=== PATIENT | female | born 1935 | race Caucasian/White ===

== ENCOUNTER 2023-10-09 16:31 | Inpatient (IN) | payer MEDICARE, OTHER, SELFPAY ==
[2023-10-09 13:52] VITALS: BP 98/58
[2023-10-09 14:07] LABS: % Basophils 0.3 % (0-2); % Immature Granulocytes 0.2 % (0-0.5); % Lymphocytes 7.2 % (20.5-51.1); % Monocytes 10.2 % (1.7-9.3); % Neutrophils 82.1 % (42.2-75.2); Absolute Lymphocytes 0.8 10^3/uL (1.2-3.4); Absolute Monocytes 1.1 10^3/uL (0.1-0.6); Absolute Neutrophils 8.5 10^3/uL (1.4-6.5); Hematocrit 36.5 % (37.0-47.0); Hemoglobin 12.2 g/dL (12.0-16.0); Mean Corp Hgb Conc. 33.4 g/dL (33.0-37.0); Mean Corpuscular Hgb 29.8 pg (27.0-31.0); Mean Corpuscular Volume 89.2 fL (81.0-99.0); Mean Platelet Volume 9.8 fL (7.4-10.4); Nucleated Red Blood Cells % 0 %; Platelet Count 291 10^3/uL (130-400); Red Blood Cell Count 4.09 10^6/uL (4.20-5.40); Red Cell Dist. Width 13.3 % (11.5-14.5); White Blood Cell Count 10.4 10^3/uL (4.8-10.8)
[2023-10-09 14:21] LABS: ALT (SGPT) 23 U/L (0-35); AST (SGOT) 44 U/L (14-36); Albumin 3.9 g/dl (3.5-5.0); Alkaline Phosphatase 115 U/L (38-126); Blood Urea Nitrogen 22 mg/dl (7-17); Carbon Dioxide 27 mmol/L (22-30); Chloride 99 mmol/L (98-107); Glucose 110 mg/dl (70-99); Potassium 4.4 mmol/L (3.5-5.1); Sodium 132 mmol/L (135-145); Total Protein 6.9 g/dl (6.3-8.2); eGFR > 60.00
[2023-10-09 15:12] LABS: COVID-19 Antigen Negative (Negative)
[2023-10-09 15:30] LABS: Lactic Acid 1.2 mmol/L (0.7-2.0)
[2023-10-09] MEDS: TYLENOL 650 MG PO ×2 (15:39→22:49)
--- NOTE | 2023-10-09 15:51 | ED.SKININJ ---
HPI-Injury
General
Chief Complaint: Skin Problem
Source: patient
Exam Limitations: none
Time Seen by Provider: 10/09/23 13:48
Travel History
Have you had any contact with someone who has COVID-19?: No
Do you have any symptoms of coronavirus? Fever > 100 degrees, chills, cough, shortness of breath, sore throat, loss of taste or smell, muscle aches, or headache?: No
History of Present Illness-Injury
Initial Injury comments:
88-year-old female presents from [facility] with generalized weakness fever and persistent redness and swelling to the right knee. Temperature at facility was 101. She was thought to have cellulitis versus abscess in the right knee was
started on doxycycline 2 days ago. She has become more weak. She is unable to support her own weight. Her daughter notes she has been confused as well. She has a pacemaker and is on Plavix. She has a history of right total knee arthroplasty
several years ago. She also notes intermittent sharp stabbing headaches. No other complaints at this time
Phy Exam
Physical Exam
Physical Exam:
General: Well-appearing female no acute respiratory distress
HEENT: Normocephalic atraumatic no obvious facial asymmetry
Heart: Regular rate and rhythm
Lungs: Clear no wheezing or rales
Abdomen is soft nontender nondistended
Skin erythema and swelling noted over the prepatellar area of the right knee. No intra-articular effusion of the right knee there is a sinus tract in the center of the swelling draining a serous fluid
Extremities: No cyanosis
Neurologic: No obvious focal unilateral deficit alert and oriented x 3
Course
Orders/Labs/Results
Orders:
Orders
10/09/23 14:00
CBC/With Diff [Complete Blood Count/With Diff] Urgent
CMP [Comprehensive Metabolic Panel] Urgent
10/09/23 14:12
CT Head W/o Iv Contrast Urgent
Comment:
Reason For Exam: headache, confusion
CR Chest - 2 Views Urgent
Comment:
Reason For Exam: weakness
10/09/23 14:13
Urinalysis Reflex To Culture Urgent
Date Specimen was Collected: 10/09/23
Time Specimen was Collected: 14:39
10/09/23 14:45
COVID-19 Antigen Urgent
Source: Nasal Swab
Lactic Acid Q4H
Comment: CANCEL 2nd LACTIC ACID IF 1st LACTIC ACID IS LESS THAN 2
Blood Culture Q30M
BAYLEE Source: Blood/Venous
Specimen Description:
Influenza A+B Rapid Molecular Urgent
BAYLEE Source: Nasal Swab
Specimen Description:
10/09/23 15:13
Blood Culture Q30M
BAYLEE Source: Blood/Venous
Specimen Description:
10/09/23 15:20
Acetaminophen [Tylenol] 650 mg PO NOW STA
10/09/23 15:46
Vancomycin 1 Gram/200 ml [Vancocin] 1 gram in 200 ml IV NOW
10/09/23 18:15
Lactic Acid Q4H
Comment: CANCEL 2nd LACTIC ACID IF 1st LACTIC ACID IS LESS THAN 2
Abnormal Lab Results
10/09/23
14:00
RBC 4.09 L 10^6/uL
(4.20-5.40)
Hct 36.5 L %
(37.0-47.0)
Absolute Neuts (auto) 8.5 H 10^3/uL
(1.4-6.5)
Absolute Lymphs (auto) 0.8 L 10^3/uL
(1.2-3.4)
Absolute Monos (auto) 1.1 H 10^3/uL
(0.1-0.6)
Neutrophils % 82.1 H %
(42.2-75.2)
Lymphocytes % 7.2 L %
(20.5-51.1)
Monocytes % 10.2 H %
(1.7-9.3)
Sodium 132 L mmol/L
(135-145)
BUN 22 H mg/dl
(7-17)
Glucose 110 H mg/dl
(70-99)
AST 44 H U/L
(14-36)
10/09/23 14:00
10/09/23 14:00
Vital Signs
Initial and Last Documented VS:
Initial Vital Signs
Temp Pulse Resp Pulse Ox
98.5 F 72 16 96
10/09/23 12:06 10/09/23 12:06 10/09/23 12:06 10/09/23 12:06
Last Documented Vital Signs
Temp Pulse Resp BP Pulse Ox
98.5 F 76 23 98/58 97
10/09/23 12:06 10/09/23 14:30 10/09/23 14:30 10/09/23 13:52 10/09/23 14:30
MDM/Problems Addressed
Differential Diagnosis Includes:
Fever, weakness and skin changes to the skin of the right knee. No exam evidence of septic arthritis. Suspect cellulitis versus draining abscess. Check COVID and flu as well as CT of the head and x-ray of the chest.
*Critical Care Note
Total Time (30-74mins, 75-104mins- exclusive of procedures): Not Applicable
Update Note
Update Note:
CT of the head negative. Chest x-ray clear COVID and flu negative. Possible generalized weakness from cellulitis to right knee on antibiotics currently. Will keep in half for vancomycin and further evaluate
ED Attending Note
-
Portions of this chart may have been created with voice recognition software.� Occasional wrong word or��sound alike� substitutions may have occurred due to the inherent limitations of voice recognition software.
Discharge Plan
Departure
Patient Disposition: Admit
Date of Disposition: 10/09/23
Time of Disposition: 15:55
Admit to: Telemetry
Presentation/result/management discussed w/ accepting MD/DO: Hospitalist
Discharge Problem:
Cellulitis
Referrals:
Rios Augustin DO [Family Provider] -
Interventions
Interventions:
*Risk Screen - Suicide Last Done: 10/09/23 12:06
*General Assessment Last Done: 10/09/23 12:06
*Neglect/Abuse Screening Last Done: 10/09/23 12:06
ED- Fall Risk Assessment Last Done: 10/09/23 14:40
*ED COVID-19 Vaccine History Last Done: 10/09/23 12:06
--- NOTE | 2023-10-09 16:17 | HPS.HSE ---
Family Physician
-
Family Physician: Rios Augustin DO
Chief Complaint
-
Right knee pain and swelling
History of Present Illness
88-year-old female transferred from [facility] for complaints of fever, weakness, redness and swelling of the right knee. Denies any falls or trauma.
Very poor historian. Apparently the right knee started swelling a few days ago and started on doxycycline 2 days ago. Daughter notes she has also been confused.
Medical History
Past Medical History
Past Medical History: Reports Other
Additional Past Medical History:
Atrial fibrillation NOS
Primary thrombophilia
Congenital absence of left hand
hyperlipidemia
Protein calorie malnutrition
Peripheral vascular disease
Vitamin D deficiency
Dementia
Major depression
Osteoporosis
Bilateral sensorineural hearing loss
Past Surgical History: Reports Other
Additional Past Surgical History:
Permanent pacemaker
AVR
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
Social History
Unable to obtain full social history at this time due to: Dementia
Tobacco: Non-smoker
Alcohol: None
Drug: None
Family History
Family History: Not pertinent
Allergies / Home Medications
Allergies reflects when Allergies were last updated in [facility].
Home Medications with original date entered in [facility]
Allergy/Medication List:
Allergies
Allergy/AdvReac Type Severity Reaction Status Date / Time
Penicillins Allergy Unknown Verified 10/09/23 12:06
Sulfa (Sulfonamide Allergy Unknown Verified 10/09/23 12:06
Antibiotics)
Review of Systems
-
History Source: Patient and Family
A 12 point ROS was completed and negative except as noted: Yes
Physical Exam
Vital Signs
Vital Signs
Temp Pulse Resp BP Pulse Ox
98.5 F 76 23 98/58 97
10/09/23 12:06 10/09/23 14:30 10/09/23 14:30 10/09/23 13:52 10/09/23 14:30
Physical Exam
General: Well Developed, Well Nourished, No Apparent Distress and Comfortable
HEENT: NormoCephalic, Anicteric and Moist mucous membranes
Respiratory: Clear
Cardiac: S1/S2 and Regular Rhythm
GI: Soft, Non Tender and Non Distended
Genito-urinary: Deferred by me
Musculoskeletal: No Clubbing, No Cyanosis and No Edema
Skin: Warm, Dry and Other (Right suprapatellar erythema and edema minimal drainage)
Neuro: Awake and Alert; No Oriented
Hematologic/Lymphatic: No Lymphadenopathy
Psych: Calm
Laboratory Results
-
10/09/23 14:00
10/09/23 14:00
Laboratory Results
Lactic Acid 1.2 mmol/L (0.7-2.0) 10/09/23 14:45
Total Bilirubin 1.0 mg/dl (0.2-1.3) 10/09/23 14:00
AST 44 U/L (14-36) H 10/09/23 14:00
ALT 23 U/L (0-35) 10/09/23 14:00
Alkaline Phosphatase 115 U/L (38-126) 10/09/23 14:00
Impression/Plan
-
Right suprapatellar site skin and soft tissue abscess -doubt septic arthritis. Normal range of motion of the knee Without significant pain.
Admit to MedSurg. Continue IV antibiotics. Consult orthopedics for abscess drainage. Check cultures. No signs or symptoms of sepsis.
Hyponatremia -check urine studies.
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
Please update home medication list.
DNR -confirmed with daughter.
[2023-10-09] MEDS: VANCOCIN 200 IV (16:31)
--- NOTE | 2023-10-09 19:26 | CON.ORTHO ---
Consultation - Orthopedics
History
Patient is an 88-year-old female who presents to the [facility] with a chief complaint of right anterior knee pain. Patient does have dementia, although is AOx3 today. Granddaughter is present at bedside who is a nurse. They
state that the right anterior knee pain has been present for the past several months with occasional drainage. She recently had a fever of 101 at her facility. She has been on doxycycline for the past 2 days. Past surgical history is significant
for a right total knee replacement in 2017. Patient reports pain at the anterior knee but denies any pain at the knee joint itself. She denies any pain within the knee upon range of motion of the knee. Denies any numbness or tingling of the right
lower extremity. She does have a pacemaker and is on plavix.
Allergies / Home Medications
Allergy/AdvReac Type Severity Reaction Status Date / Time
Penicillins Allergy Unknown Verified 10/09/23 12:06
Sulfa (Sulfonamide Allergy Unknown Verified 10/09/23 12:06
Antibiotics)
Medication Instructions Recorded
Saccharomyces boulardii 250 mg 250 mg PO QPM 10/09/23
capsule (Florastor)
acetaminophen 325 mg tablet 650 mg PO Q4HPRN PRN mild pain 10/09/23
(Tylenol)
acetaminophen 500 mg tablet 1,000 mg PO BID 10/09/23
(Tylenol Extra Strength)
alendronate 70 mg tablet (Fosamax) 70 mg PO HANLEY 10/09/23
alprazolam 0.25 mg tablet (Xanax) 0.25 mg PO BIDPRN PRN if cant 10/09/23
sleep after 0200am
azelastine 137 mcg (0.1 %) nasal 1 spray intranasal DAILYPRN PRN 10/09/23
spray aerosol allergies
bisacodyl 10 mg rectal suppository 10 mg MA [id number] PRN if no bm aftr 10/09/23
(Dulcolax (bisacodyl)) mom
carbamide peroxide 6.5 % ear drops 4 drp otic (ear) BIDPRN PRN cerumen 10/09/23
(Debrox)
cetirizine 10 mg tablet (Zyrtec) 10 mg PO DAILY PRN allergies 10/09/23
chlorpheniramine-dextromethorphan 1 tab PO Q6HPRN PRN cough 10/09/23
4 mg-30 mg tablet (Coricidin HBP
Cough and Cold)
chlorthalidone 25 mg tablet 25 mg PO DAILY 10/09/23
cholecalciferol (vitamin D3) 1,250 1,250 mcg PO QMONTH 10/09/23
mcg (50,000 unit) tablet
clopidogrel 75 mg tablet (Plavix) 75 mg PO DAILY 10/09/23
doxycycline hyclate 100 mg tablet 100 mg PO BID 10/09/23
eucalyptus-menthol oral mucosal 3.1 mg mucous membrane Q6HPRN PRN 10/09/23
lozenge cough
ezetimibe 10 mg tablet (Zetia) 10 mg PO DAILY 10/09/23
lidocaine 4 % topical patch 1 patch topical DAILYPRN PRN b/l 10/09/23
knee
magnesium hydroxide 400 mg/5 mL 2,400 mg PO HSPRN PRN constipation 10/09/23
oral suspension (Milk of Magnesia)
methimazole 5 mg tablet 5 mg PO MOWEFR@0800 10/09/23
pantoprazole 20 mg tablet,delayed 20 mg PO DAILY 10/09/23
release (Protonix)
potassium chloride 20 mEq 20 meq PO BID 10/09/23
tablet,extended release
rosuvastatin 40 mg tablet (Crestor) 40 mg PO QPM 10/09/23
sertraline 25 mg tablet 12.5 mg PO MOWEFR@0830 10/09/23
sotalol 80 mg tablet 40 mg PO BID 10/09/23
trazodone 50 mg tablet 50 mg PO HS 10/09/23
Vital Signs / Lab Results
Temp Pulse Resp BP Pulse Ox
98.5 F 76 23 98/58 97
10/09/23 12:06 10/09/23 14:30 10/09/23 14:30 10/09/23 13:52 10/09/23 14:30
10/09/23 14:00
10/09/23 14:00
Review of systems negative otherwise as noted in HPI
General Examination
GENERAL APPEARANCE: Alert, well hydrated, in no distress.
HEAD: Normocephalic, atraumatic.
EYES: Extraocular movement full and smooth.
GI: Soft, nontender, nondistended
MSK: Right knee prepatellar effusion present with surrounding erythema anteriorly. Small region of skin opening present with clear fluid drainage. No effusion present at the knee. No tenderness present upon palpation of medial or lateral joint
line. Prior surgical incision is well-healed. No pain elicited within the knee joint upon range of motion-patient only feels tightness at the anterior knee with discomfort upon flexion to 90 degrees. TA/EHL/GSC intact motor. Sensation intact of
the right lower extremity grossly. DP 2+.
Imaging:
Right knee x-rays pending
Assessment / Plan
Assessment:
Right knee prepatellar bursitis. Based on examination, there is low suspicion for infection in the knee joint
Plan:
Patient has had chronic right knee prepatellar bursitis over the past several months. She has also had drainage on and off per family. She is currently afebrile and vitals are stable. WBC wnl.
-Recommend compressive dressing at the right knee. Warm compresses to R knee
-Recommend antibiotics per IM.
-RLE WBAT.
-No surgical intervention indicated at this time. Will continue to follow.
[2023-10-09 19:57] VITALS: BP 153/70; BMI 23.2
--- NOTE | 2023-10-09 20:00 | PTCARENOTE ---
Received patient from ED via stretcher. Patient pulled over from stretcher to bed. No current complaints of pain. Right knee abscess draining serous fluid. Oriented patient to room and placed call vaughan within reach.
[2023-10-09] MEDS: LOVENOX 40 MG SC (22:23)
[2023-10-09 23:00] VITALS: BP 144/88
[2023-10-10 03:51] VITALS: BP 139/61
[2023-10-10 07:35] VITALS: BP 155/59
--- NOTE | 2023-10-10 07:43 | PHA.VAN.IN ---
Assessment
- Assessment
Renal Function: Appears similar to baseline
Maximum Temperature: 102.5 on 10/08 23:00
AUC Dosing Plan
- Dosing Variables
Dosing Weight (kg): 53.7
Dosing CrCl (ml/min): 36
Vd coefficient (L/kg): 0.7
- Empiric Dosing
Initial / Loading Dose: 1000 mg - 10/09/23 ~1630
Maintenance Regimen: begin 750 mg q24h today
Estimated AUC (mcg*h/mL): 592
Estimated Peak (mcg*h/mL): 35.6
Estimated Trough (mcg/ml): 16.2
Estimated Half Life (H): 20.2
- Monitoring
No levels ordered at this time: may consider trough only Thursday AM; or P/T after 4th dose
Pharmacokinetics Vancomycin I
- -
Patient Age: 88
Patient Sex: Female
Vancomycin Day #: 1
Indication: Skin And Soft Tissue
Requesting Provider: NAVDEEP
Pertinent Antimicrobial Allergies:
Allergies
Penicillins Allergy (Verified 10/09/23 12:06)
Unknown
Sulfa (Sulfonamide Antibiotics) Allergy (Verified 10/09/23 12:06)
Unknown
Height / Weight:
Height 5 ft
Actual Weight 53.779 kg
Pertinent Past Medical History: failed outpt doxy
- Vital Signs / Lab Results
Temp Pulse Resp BP Pulse Ox
98.8 F 74 16 139/61 94
10/10/23 03:51 10/10/23 03:51 10/10/23 03:51 10/10/23 03:51 10/10/23 03:51
Lab Results - Hematology
10/09/23
14:00
WBC 10.4
Lab Results - Chemistry
10/09/23
14:00
BUN 22 H
Creatinine 0.8
Albumin 3.9
03/08/24 03/08/24
14:45 18:15
Lactic Acid 1.2 Cancelled
Microbiology Results
10/09/23 14:45 Influenza Types A & B (DELORIS) - Final
Nasal Swab Negative for Influenza A & B, NAAT
Negative results must be combined with clinical observations
and patient history.
Nucleic Acid Amplification test (NAAT)performed on the
[employer] platform.
[2023-10-10 08:38] LABS: Urine Albumin 1+ (Neg - Trace); Urine Bilirubin Negative (Negative); Urine Character Clear (Clear); Urine Color Yellow; Urine Glucose Negative (Negative); Urine Ketone Trace (Negative); Urine Leukocyte Negative (Negative); Urine Nitrite Negative (Negative); Urine Occult Blood 2+ (Negative); Urine Urobilinogen Negative (Neg - 1+); Urine pH 6.5 (5.0-9.0)
[2023-10-10 09:09] LABS: Urine Bacteria Few (Negative); Urine Red Blood Cell 0-2 /HPF (0-2)
[2023-10-10 09:15] VITALS: BP 135/62; PULSE 80; O2SAT 96
[2023-10-10] MEDS: TYLENOL 650 MG PO ×2 (09:21→20:59)
--- NOTE | 2023-10-10 09:47 | W.PN.HOSP.TC ---
Today's Communication/Plan
-
PT/OT
Continue IV vancomycin
Compression dressings
Assessment / Plan
Assessment / Plan
Gen-AAOx3, NAD
HEENT-NC, AT, anicteric, clear oral mm
Neck-supple
CV-reg, no M, +S1/S2
Lungs-clear B/L
Abd-soft, NT, ND
Ext-no edema
Musculoskeletal-no cyanosis, clubbing, right knee erythema and edema much improved compared to yesterday
Skin-warm and dry
Neuro-grossly non-focal
Psych-calm, cooperative
Right knee prepatellar bursitis/abscess -improving on IV vancomycin. Unfortunately no fluid culture was sent. Blood cultures pending. Fever noted last night. White blood cell count normal. No drainage indicated as per orthopedics. Continue
compression dressings. Warm compresses. Weightbearing as tolerated.
Hyponatremia -check urine studies. Will discontinue chlorthalidone.
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
Hyperlipidemia -on Crestor.
essential hypertension -stable.
Osteoporosis -on weekly Fosamax
DNR
Anticipated Discharge: 24 - 48 hours
Subjective/Interval History
-
Date of Service: October 10, 2023
Patient seen and examined. Complaining of headache. Denies knee pain.
Objective Data
-
Vital Signs:
Vital Signs
Temp Pulse Resp BP Pulse Ox
98.9 F 71 20 155/59 94
10/10/23 07:35 10/10/23 07:35 10/10/23 07:35 10/10/23 07:35 10/10/23 07:35
I&O
10/09/23 10/10/23 10/11/23
06:59 06:59 07:59
Intake Total 0 / 0
Balance 0 / 0
Review of Systems
-
History Source: Patient
All other systems: Reviewed and negative
--- NOTE | 2023-10-10 11:05 | W.PN.ORTHO ---
Today's Communication / Plan
-
Plan:
-Recommend compressive dressing at the right knee. Warm compresses to R knee
-Recommend antibiotics per IM.
-RLE WBAT
-Will continue to follow
Assessment
.
Dressing:
Clean, dry and intact.
Assessment:
Right knee prepatellar bursitis. Currently low concern for knee joint infection given she has near painless ROM
Plan
.
Activity:
Out of bed.
PT/OT
Subjective
.
.:
Patient seen and examined. Resting comfortably in bed. Still reports pain at the right anterior knee. Denies any numbness or tingling of the right lower extremity.
Vital Signs and Labs
.
Vital Signs and Labs:
Lab Results
10/09/23 14:00
10/09/23 14:00
Temp Pulse Resp BP Pulse Ox
98.9 F 71 20 155/59 94
10/10/23 07:35 10/10/23 07:35 10/10/23 07:35 10/10/23 07:35 10/10/23 07:35
Physical Exam
-
MSK: Right knee prepatellar effusion present with surrounding erythema anteriorly- improved from yesterday. Small region of skin opening present with clear fluid drainage. No effusion present at the knee. No tenderness present upon palpation of
medial or lateral joint line. No pain elicited within the knee joint upon range of motion-patient only feels tightness at the anterior knee with discomfort upon flexion to 90 degrees. TA/EHL/GSC intact motor. Sensation intact of the right lower
extremity grossly. DP 2+
[2023-10-10] MEDS: BETAPACE 40 MG PO ×2 (11:13→20:52)
[2023-10-10] MEDS: PLAVIX 75 MG PO (11:13)
[2023-10-10] MEDS: VANCOCIN 150 IV (11:14)
[2023-10-10] MEDS: ZETIA 10 MG PO (11:14)
[2023-10-10 11:23] LABS: Osmolality Urine 544 mOsm/kg (300-900)
[2023-10-10] MEDS: DEBROX EAR DROPS 4 DROP OTIC (11:27)
[2023-10-10 11:39] LABS: Urine Sodium 109 mmol/L (30-90)
[2023-10-10 15:28] VITALS: BP 154/66
[2023-10-10] MEDS: LOVENOX 40 MG SC (17:15)
[2023-10-10] MEDS: CRESTOR 40 MG PO (17:15)
[2023-10-10] MEDS: FLORASTOR 250 MG PO (17:15)
[2023-10-10 19:45] VITALS: BP 166/90
[2023-10-10] MEDS: KCL 20 MEQ PO (20:53)
[2023-10-10] MEDS: DESYREL 50 MG PO (22:26)
[2023-10-10 23:27] VITALS: BP 122/52
[2023-10-11 03:41] VITALS: BP 150/69
[2023-10-11] MEDS: VANCOCIN 150 IV (05:32)
[2023-10-11 07:25] VITALS: BP 157/63
[2023-10-11] MEDS: BETAPACE 40 MG PO ×2 (08:39→20:52)
[2023-10-11] MEDS: KCL 20 MEQ PO ×2 (08:39→20:52)
[2023-10-11] MEDS: PLAVIX 75 MG PO (08:39)
[2023-10-11] MEDS: PROTONIX 20 MG PO (08:39)
[2023-10-11] MEDS: ZETIA 10 MG PO (08:39)
--- NOTE | 2023-10-11 09:11 | W.PN.HOSP.TC ---
Today's Communication/Plan
-
Await labs
Continue antibiotics
Continue PT/OT
Assessment / Plan
Assessment / Plan
Gen-AAOx3, NAD
HEENT-NC, AT, anicteric, clear oral mm
Neck-supple
CV-reg, no M, +S1/S2
Lungs-clear B/L
Abd-soft, NT, ND
Ext-no edema
Musculoskeletal-no cyanosis, clubbing, right knee erythema and edema much improved compared to yesterday
Skin-warm and dry
Neuro-grossly non-focal
Psych-calm, cooperative
Right knee prepatellar bursitis/abscess -improving on IV vancomycin. Unfortunately no fluid culture was sent. Blood cultures negative. Fever noted last night. White blood cell count normal. No drainage indicated as per orthopedics. Continue
compression dressings. Warm compresses. Weightbearing as tolerated.
Hyponatremia -urine studies consistent with excess ADH. Will discontinue chlorthalidone. Check repeat labs today.
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
Hyperlipidemia -on Crestor.
essential hypertension -stable.
Osteoporosis -on weekly Fosamax
DNR
Dispo -PT recommending possible SNF.
Anticipated Discharge: Within 24 hours
Subjective/Interval History
-
Date of Service: October 11, 2023
Patient seen and examined. No new complaints.
Objective Data
-
Vital Signs:
Vital Signs
Temp Pulse Resp BP Pulse Ox
98.7 F 74 18 157/63 92
10/11/23 07:25 10/11/23 07:25 10/11/23 07:25 10/11/23 07:25 10/11/23 07:25
I&O
10/10/23 10/11/23 10/12/23
05:59 06:59 06:59
Intake Total
Output Total
Balance
Review of Systems
-
History Source: Patient
All other systems: Reviewed and negative
[2023-10-11 09:52] LABS: % Basophils 0.9 % (0-2); % Eosinophils 0.1 % (0-6); % Immature Granulocytes 0.3 % (0-0.5); % Lymphocytes 14.5 % (20.5-51.1); % Neutrophils 72.2 % (42.2-75.2); Absolute Basophils 0.1 10^3/uL (0-0.2); Absolute Monocytes 0.8 10^3/uL (0.1-0.6); Absolute Neutrophils 4.9 10^3/uL (1.4-6.5); Hematocrit 36.6 % (37.0-47.0); Hemoglobin 12.3 g/dL (12.0-16.0); Mean Corp Hgb Conc. 33.6 g/dL (33.0-37.0); Mean Corpuscular Hgb 29.1 pg (27.0-31.0); Mean Corpuscular Volume 86.5 fL (81.0-99.0); Mean Platelet Volume 9.6 fL (7.4-10.4); Nucleated Red Blood Cells % 0 %; Platelet Count 320 10^3/uL (130-400); Red Blood Cell Count 4.23 10^6/uL (4.20-5.40); Red Cell Dist. Width 13.4 % (11.5-14.5); White Blood Cell Count 6.8 10^3/uL (4.8-10.8)
[2023-10-11 10:08] LABS: ALT (SGPT) 32 U/L (0-35); AST (SGOT) 60 U/L (14-36); Albumin 3.4 g/dl (3.5-5.0); Alkaline Phosphatase 114 U/L (38-126); Blood Urea Nitrogen 22 mg/dl (7-17); Calcium 8.9 mg/dl (8.4-10.2); Carbon Dioxide 28 mmol/L (22-30); Chloride 95 mmol/L (98-107); Estimated Creatinine Clearance 32 ml/min; Glucose 195 mg/dl (70-99); Potassium 3.2 mmol/L (3.5-5.1); Sodium 129 mmol/L (135-145); Total Bilirubin 0.8 mg/dl (0.2-1.3); Total Protein 6.3 g/dl (6.3-8.2); eGFR > 60.00
--- NOTE | 2023-10-11 10:20 | PHA.VAN.FU ---
Vancomycin Assessment / Plan
- Assessment
Renal Function: Stable
WBC's are: WNL
In the past 24 hrs, patient has been: Febrile (102.3 - 10/10/23 19:45)
Concomitant Antimicrobials: none
- Dosing Plan
Continue: vancomycin 750 mg q24h - first dose 10/10/23
- Monitoring Plan
Peak Level: 10/12/23 0830 - after 4th dose
Trough Level: 10/13/23 0530
- Follow Up
Pharmacy will continue to follow.
Vancomycin Follow UP
- -
Patient Age: 88
Patient Sex: Female
Vancomycin Day #: 2
Indication: Skin And Soft Tissue
Requesting Provider: NAVDEEP
Pertinent Antimicrobial Allergies:
Allergies
Penicillins Allergy (Verified 10/09/23 12:06)
Unknown
Sulfa (Sulfonamide Antibiotics) Allergy (Verified 10/09/23 12:06)
Unknown
Height / Weight:
Height 5 ft
Actual Weight 53.779 kg
Pertinent Past Medical History: failed outpt doxy
- Vital Signs / Lab Results
Temp Pulse Resp BP Pulse Ox
98.7 F 74 18 157/63 92
10/11/23 07:25 10/11/23 07:25 10/11/23 07:25 10/11/23 07:25 10/11/23 07:25
Lab Results - Hematology
10/09/23 10/11/23
14:00 09:32
WBC 10.4 6.8
Lab Results - Chemistry
10/09/23 10/11/23
14:00 09:32
BUN 22 H 22 H
Creatinine 0.8 0.9
Estimated Creat Clear 32
Albumin 3.9 3.4 L
10/09/23 10/09/23
14:45 18:15
Lactic Acid 1.2 Cancelled
Microbiology Results
10/09/23 23:10 MRSA Screen - Final
Nose No Methicillin Resistant Staphylococcus aureus isolated.
10/09/23 15:13 Blood Culture - Preliminary
Blood/Venous No Growth in 24 hours- Final report to follow
10/09/23 14:45 Blood Culture - Preliminary
Blood/Venous No Growth in 24 hours- Final report to follow
10/09/23 14:45 Influenza Types A & B (DELORIS) - Final
Nasal Swab Negative for Influenza A & B, NAAT
Negative results must be combined with clinical observations
and patient history.
Nucleic Acid Amplification test (NAAT)performed on the
[employer] platform.
[2023-10-11 11:20] VITALS: BP 137/60
[2023-10-11 11:56] LABS: Magnesium 1.9 mg/dl (1.6-2.3)
[2023-10-11] MEDS: DEBROX EAR DROPS 4 DROP OTIC (12:51)
[2023-10-11] MEDS: KCL 40 MEQ PO (12:52)
[2023-10-11] MEDS: TYLENOL 650 MG PO ×2 (15:17→21:04)
[2023-10-11 15:45] VITALS: BP 155/73
--- NOTE | 2023-10-11 15:49 | W.PN.ORTHO ---
Today's Communication / Plan
-
Plan:
-Recommend compressive dressing at the right knee. Warm compresses to R knee
-Recommend antibiotics per IM.
-She reports improvement in her pain. If there is worsening of her pain or concern develops for a knee joint infection, she may require a joint aspiration
-RLE WBAT
-Will continue to follow
Assessment
.
Dressing:
Clean, dry and intact.
Assessment:
Assessment:
Right knee prepatellar bursitis
Plan
.
Activity:
Out of bed.
PT/OT
Subjective
.
.:
Patient seen and examined. Resting comfortably in bed. Still reports pain at the right anterior knee. Denies any numbness or tingling of the right lower extremity.
Vital Signs and Labs
.
Vital Signs and Labs:
Lab Results
10/11/23 09:32
10/11/23 09:32
Temp Pulse Resp BP Pulse Ox
100 F 73 18 137/60 93
10/11/23 11:20 10/11/23 11:20 10/11/23 11:20 10/11/23 11:20 10/11/23 11:20
Physical Exam
-
MSK: Right knee prepatellar effusion present with surrounding erythema anteriorly- improved from yesterday. Small region of skin opening present with clear fluid drainage-diminished compared to yesterday. No effusion present at the knee. No
tenderness present upon palpation of medial or lateral joint line. No pain elicited within the knee joint upon range of motion-patient only feels tightness at the anterior knee with discomfort upon flexion to 90 degrees. TA/EHL/GSC intact motor.
Sensation intact of the right lower extremity grossly. DP 2+
Imaging:
X-rays from 10/09/2023 demonstrate the presence of a right total knee arthroplasty as well as a screw at the proximal tibia. Rotated and deformed patella present which is likely status post removal of patellar component at some point in the past.
Suprapatellar effusion present.
[2023-10-11] MEDS: LOVENOX 40 MG SC (17:50)
[2023-10-11] MEDS: FLORASTOR 250 MG PO (17:50)
[2023-10-11] MEDS: CRESTOR 40 MG PO (17:50)
[2023-10-11 19:56] VITALS: BP 132/58
[2023-10-11] MEDS: DESYREL 50 MG PO (20:53)
[2023-10-11 23:26] VITALS: BP 118/54
[2023-10-12 03:38] VITALS: BP 154/74
[2023-10-12] MEDS: VANCOCIN 150 IV (06:01)
[2023-10-12 07:45] VITALS: BP 170/76
[2023-10-12 09:01] LABS: Vancomycin Peak 22.1 ug/ml (18-26)
[2023-10-12] MEDS: BETAPACE 40 MG PO ×2 (09:04→22:01)
[2023-10-12] MEDS: ZETIA 10 MG PO (09:07)
[2023-10-12] MEDS: TAPAZOLE 5 MG PO (09:07)
[2023-10-12] MEDS: PROTONIX 20 MG PO (09:07)
[2023-10-12] MEDS: PLAVIX 75 MG PO (09:07)
[2023-10-12] MEDS: KCL 20 MEQ PO ×2 (09:08→22:02)
[2023-10-12] MEDS: ZOLOFT 12.5 MG PO (09:18)
--- NOTE | 2023-10-12 10:00 | WOUNDNOTE ---
STEVIE RN note: Patient admitted with cellulitis of R knee.
See H&P for complete history.
PMH: R knee surgery, PM, TAVR, A Fib, anxiety, depression,dementia and congenital absence of L hand.
Wound Location and type/assessment: Patient admitted with: R knee drainage, reviewed Ortho note; prepatellar bursitis, compressive dressing and warm compresses recommended. Patient able to turn self in bed, buttocks and heels are intact. Pillow in
use under calves.
Appetite: Good.
Pressure redistribution devices in place: On Accumax, turns self.
Plan: Dressing changed using gauze, abd pad and yasmine, small amt of serous drainage on old dressing.
Will confirm orders with hospitalist and update nurse.
Updated care plan and will follow as needed.
Note to case management of equipment requested for discharge:
Recommend follow up with orthopedic MD.
--- NOTE | 2023-10-12 10:07 | PHA.VAN.FU ---
Vancomycin Assessment / Plan
- Assessment
Renal Function: Stable
WBC's are: WNL
In the past 24 hrs, patient has been: Afebrile
- Dosing Plan
Continue: vanc 750 mg q24h
- Monitoring Plan
Peak Level: 22.1 drawn 08:18, between 1-3 hours post completion of infusion
Trough Level: 10/12 0530
- Follow Up
Pharmacy will continue to follow.
Vancomycin Follow UP
- -
Patient Age: 88
Patient Sex: Female
Vancomycin Day #: 3
Indication: Skin And Soft Tissue
Requesting Provider: Dr Theodore
Pertinent Antimicrobial Allergies:
Allergies
Penicillins Allergy (Verified 10/09/23 12:06)
Unknown
Sulfa (Sulfonamide Antibiotics) Allergy (Verified 10/09/23 12:06)
Unknown
Height / Weight:
Height 5 ft
Actual Weight 53.779 kg
Pertinent Past Medical History: failed outpt doxy; knee abcess
- Vital Signs / Lab Results
Temp Pulse Resp BP Pulse Ox
99.5 F 74 18 170/74 93
10/12/23 07:45 10/12/23 09:04 10/12/23 07:45 10/12/23 09:04 10/12/23 09:20
Lab Results - Hematology
10/09/23 10/11/23
14:00 09:32
WBC 10.4 6.8
Lab Results - Chemistry
10/09/23 10/11/23
14:00 09:32
BUN 22 H 22 H
Creatinine 0.8 0.9
Estimated Creat Clear 32
Albumin 3.9 3.4 L
10/09/23 10/09/23
14:45 18:15
Lactic Acid 1.2 Cancelled
Microbiology Results
10/09/23 15:13 Blood Culture - Preliminary
Blood/Venous No Growth in 48 hours- Final report to follow
10/09/23 14:45 Blood Culture - Preliminary
Blood/Venous No Growth in 48 hours- Final report to follow
10/09/23 23:10 MRSA Screen - Final
Nose No Methicillin Resistant Staphylococcus aureus isolated.
Therapeutic Drug Monitoring
Vancomycin Peak 22.1 ug/ml (18-26) 10/12/23 08:18
[2023-10-12] MEDS: TYLENOL 650 MG PO (10:16)
[2023-10-12] MEDS: DEBROX EAR DROPS 4 DROP OTIC (10:17)
[2023-10-12 11:35] VITALS: BP 154/66
--- NOTE | 2023-10-12 12:00 | CM ---
Addendum entered by Shasha Noble 10/12/23 12:03:
TT/Lebron
Dtr requesting ENT consult noting pt with ear pain
Original Note:
CM spoke with nursing ay [facility]
Pt has been a LTC resident since Sep 2022
Pt was a 1 person assist for ambulation and ADLs
Since knee issues, pt has a mechanical lift and non-ambulatory
Pt is noted to be AxO 3x normally
Bedside meeting with pt to introduce self and explain role
Call to dtr to introduce and explain role as well
VM left with [facility] admissions to discuss possible IV abx at SNF
Requested call back
Discharge Disposition- return to [facility] LTC, watch for IV abx needs
[2023-10-12 13:40] LABS: Blood Urea Nitrogen 21 mg/dl (7-17); Calcium 8.9 mg/dl (8.4-10.2); Carbon Dioxide 29 mmol/L (22-30); Chloride 94 mmol/L (98-107); Estimated Creatinine Clearance 36 ml/min; Glucose 144 mg/dl (70-99); Potassium 3.8 mmol/L (3.5-5.1); Sodium 130 mmol/L (135-145); eGFR > 60.00
[2023-10-12] MEDS: KCL 40 MEQ PO (13:47)
[2023-10-12 15:45] VITALS: BP 160/70
[2023-10-12] MEDS: CRESTOR 40 MG PO (16:45)
[2023-10-12] MEDS: FLORASTOR 250 MG PO (16:45)
[2023-10-12] MEDS: LOVENOX 40 MG SC (16:45)
--- NOTE | 2023-10-12 16:57 | W.PN.HOSP.TC ---
Today's Communication/Plan
-
Continue IV antibiotics
Replete potassium.
Follow sodium level
Assessment / Plan
Assessment / Plan
Impression/plan
Right knee prepatellar bursitis/abscess -improving on IV vancomycin. Unfortunately no fluid culture was sent. Blood cultures negative. Fever noted last night. White blood cell count normal. No drainage indicated as per orthopedics. Continue
compression dressings. Warm compresses. Weightbearing as tolerated.
Hyponatremia -urine studies consistent with excess ADH. Will discontinue chlorthalidone. Continue free water restriction. Sodium trending down: 132�129. Consider holding SSRI
Hypokalemia, replete
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
Hyperlipidemia -on Crestor.
essential hypertension -stable.
Osteoporosis -on weekly Fosamax
DNR
Dispo -PT recommending possible SNF.
Anticipated Discharge: 24 - 48 hours
Subjective/Interval History
-
Date of Service: October 12, 2023
Objective Data
-
Labs:
Laboratory Results
10/12/23
12:28
Sodium 130 L
Potassium 3.8
Chloride 94 L
Carbon Dioxide 29
BUN 21 H
Creatinine 0.8
Glucose 144 H
Calcium 8.9
Vital Signs:
Vital Signs
Temp Pulse Resp BP Pulse Ox
98.7 F 74 18 160/70 95
10/12/23 15:45 10/12/23 15:45 10/12/23 15:45 10/12/23 15:45 10/12/23 15:45
I&O
10/11/23 10/12/23 10/13/23
06:59 06:59 06:59
Intake Total 1110 / 1110
Output Total 1000 / 1000
Balance 110 / 110
Physical Exam
-
General: Well Developed and No Apparent Distress
HEENT: Normocephalic, Atraumatic and Moist Mucous Membranes
Respiratory: Clear to Auscultation
Cardiac: Regular Rhythm and S1/S2; Negative Murmur, Rub or Gallop
GI: Soft, Nontender, Nondistended and Normal Bowel Sounds; Negative Organomegaly
Rectal: Deferred by Provider
Musculoskeletal: No Clubbing, No Cyanosis and No Edema
Skin: Negative Rash
Neuro: Nonfocal/Grossly Intact
[2023-10-12 19:21] VITALS: BP 175/80
[2023-10-12] MEDS: DESYREL 50 MG PO (22:02)
[2023-10-12 23:26] VITALS: BP 176/76
--- NOTE | 2023-10-13 00:28 | PTCARENOTE ---
Patient with temperature of 100.9, tylenol given. 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
[2023-10-13 03:46] VITALS: BP 160/79
[2023-10-13] MEDS: VANCOCIN 150 IV (05:59)
[2023-10-13 06:40] LABS: % Basophils 0.5 % (0-2); % Eosinophils 0.5 % (0-6); % Immature Granulocytes 0.3 % (0-0.5); % Lymphocytes 11.2 % (20.5-51.1); % Monocytes 13.9 % (1.7-9.3); % Neutrophils 73.6 % (42.2-75.2); Absolute Lymphocytes 0.9 10^3/uL (1.2-3.4); Absolute Monocytes 1.1 10^3/uL (0.1-0.6); Absolute Neutrophils 5.8 10^3/uL (1.4-6.5); Hematocrit 33.2 % (37.0-47.0); Hemoglobin 11.3 g/dL (12.0-16.0); Mean Corpuscular Hgb 29.2 pg (27.0-31.0); Mean Corpuscular Volume 85.8 fL (81.0-99.0); Nucleated Red Blood Cells % 0 %; Red Blood Cell Count 3.87 10^6/uL (4.20-5.40); Red Cell Dist. Width 13.7 % (11.5-14.5); White Blood Cell Count 7.9 10^3/uL (4.8-10.8)
[2023-10-13 06:43] LABS: Blood Urea Nitrogen 16 mg/dl (7-17); Carbon Dioxide 28 mmol/L (22-30); Chloride 99 mmol/L (98-107); Estimated Creatinine Clearance 41 ml/min; Glucose 133 mg/dl (70-99); Potassium 4.1 mmol/L (3.5-5.1); Sodium 131 mmol/L (135-145); eGFR > 60.00
[2023-10-13 06:53] LABS: Vancomycin Trough 9.3 ug/ml (5-20)
[2023-10-13 07:00] VITALS: BP 153/77
--- NOTE | 2023-10-13 07:10 | W.PN.ENT ---
Today's Communication
-
patient seen at bedside
Impression / Plan
-
intermittent right ear pain
cerumen removed
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
Discussed with patient that she should relax jaw, use heat and acetaminophen or ibuprofen
Subjective Data
-
asked to see patient with intermittent ear pain on right
currently, ear not painful
left ear not bothersome
Objective Data
-
Vital Signs
Temp Pulse Resp BP Pulse Ox
98.4 F 77 16 160/79 95
10/13/23 03:46 10/13/23 03:46 10/13/23 03:46 10/13/23 03:46 10/13/23 03:46
Intake & Output
10/12/23 10/13/23 10/14/23
06:59 06:59 06:59
Intake:
Oral fluids 960 / 960 720 / 720
IV piggybacks 150 / 150 150 / 150
Output:
Urine, Voided 1000 / 1000
Other:
How many times incontinent 2
MODERATE amount urine
How many times incontinent 1 1
SATURATED amount urine
Lab Results
10/13/23 06:23
10/13/23 06:23
Calcium 9.0 mg/dl (8.4-10.2) 10/13/23 06:23
Magnesium 1.9 mg/dl (1.6-2.3) 10/11/23 09:32
Total Bilirubin 0.8 mg/dl (0.2-1.3) 10/11/23 09:32
AST 60 U/L (14-36) H 10/11/23 09:32
ALT 32 U/L (0-35) 10/11/23 09:32
Alkaline Phosphatase 114 U/L (38-126) 10/11/23 09:32
Urine Color Yellow 10/10/23 08:17
Urine Clarity Clear (Clear) 10/10/23 08:17
Urine pH 6.5 (5.0-9.0) 10/10/23 08:17
Ur Specific [place] 1.010 (<1.030) 10/10/23 08:17
Urine Ketones Trace (Negative) A 10/10/23 08:17
Physical Exam
-
cerumen impaction removed from right ear at bedside-patient tolerated well
ear Ok-no infection, no abnormality noted
patient has right TMJ arthritis, ankylosis
Chest: Clear
Respiratory: Clear
Data Reviewed
-
Radiology Results: Report Reviewed
--- NOTE | 2023-10-13 08:10 | W.PN.UPDATE ---
Update Note
Progress Note Update
Patient reports right knee pain improving. Right knee trace edema prepatellar bursa without warmth, erythema or pain. No effusion noted. Passive range of motion nonpainful. She seems to be improving while on antibiotics. Light dressing for now
and continue with warm soaks. Hopefully she could switch to oral antibiotics with continued observation. Orthopedics to sign off for now.
[2023-10-13] MEDS: PROTONIX 20 MG PO (08:36)
[2023-10-13] MEDS: PLAVIX 75 MG PO (08:36)
[2023-10-13] MEDS: KCL 20 MEQ PO (08:36)
[2023-10-13] MEDS: BETAPACE 40 MG PO (08:37)
[2023-10-13] MEDS: ZETIA 10 MG PO (08:37)
--- NOTE | 2023-10-13 10:10 | PHA.VAN.FU ---
Vancomycin Assessment / Plan
- Assessment
Renal Function: Stable
WBC's are: WNL
- Assessment - Therapeutic Drug Monitoring
Extrapolated Cmax (mcg/mL): 23.2
Peak level was drawn: Appropriately (drawn ~1.3H after end of prior infusion)
Extrapolated Cmin (mcg/mL): 9.4
Trough Drawn: While dose was infusing (dose scanned as administered at 05:59, prior to trough collection time; unclear if was actually administered prior to level was would expect value to be artifically higher)
Levels were drawn: At steady state (levels drawn after 3rd maintenance dose)
Calculated AUC (mcg*h/mL): 369
Calculated ke: 0.0392
Calculated half life (H): 17.7
Calculated Vd (L): 52
Calculated Vanc CL (ml/min): 34
- Dosing Plan
Adjust Regimen to: Vanc 1000mg Q24H
New Regimen Predicts: AUC (501), Peak (31.6), Trough (12.8)
Unclear accuracy of trough value
Will tentatively increase dose because anticipate if dose was infusion while trough was drawn that true trough is even lower
- Monitoring Plan
No level(s) ordered at this time: consider levels in next few days to assess new regimen
- Follow Up
Pharmacy will continue to follow.
Vancomycin Follow UP
- -
Patient Age: 88
Patient Sex: Female
Vancomycin Day #: 4
Indication: Skin And Soft Tissue
Requesting Provider: Dr Theodore
Pertinent Antimicrobial Allergies:
Penicillins -Unknown
Sulfa (Sulfonamide Antibiotics) -Unknown
Height / Weight:
Height 5 ft
Actual Weight 53.779 kg
- Vital Signs / Lab Results
Temp Pulse Resp BP Pulse Ox
98.2 F 74 20 153/77 96
10/13/23 07:00 10/13/23 07:00 10/13/23 07:00 10/13/23 07:00 10/13/23 08:46
Lab Results - Hematology
10/11/23 10/13/23
09:32 06:23
WBC 6.8 7.9
Lab Results - Chemistry
10/11/23 10/12/23 10/13/23
09:32 12:28 06:23
BUN 22 H 21 H 16
Creatinine 0.9 0.8 0.7
Estimated Creat Clear 32 36 41
Albumin 3.4 L
Microbiology Results
10/09/23 15:13 Blood Culture - Preliminary
Blood/Venous No Growth in 72 hours- Final report to follow
10/09/23 14:45 Blood Culture - Preliminary
Blood/Venous No Growth in 72 hours- Final report to follow
10/09/23 23:10 MRSA Screen - Final
Nose No Methicillin Resistant Staphylococcus aureus isolated.
Therapeutic Drug Monitoring
Vancomycin Peak 22.1 ug/ml (18-26) 10/12/23 08:18
Vancomycin Trough 9.3 ug/ml (5-20) 10/13/23 06:23
[2023-10-13 11:00] VITALS: BP 153/68
--- NOTE | 2023-10-13 15:05 | W.DS.TRANS ---
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
-
Discharge Instructions:
Discharge Diagnosis/Procedures Right knee prepatellar bursitis/abscess
Diet Regular
Instructions:
Stand-Alone Forms:
Changes to Home Medications: Yes
Discharge Medications:
DC Medications w/original date entered in [employer]
Saccharomyces boulardii 250 mg capsule (Florastor) 250 mg PO QPM 10/09/23
acetaminophen 325 mg tablet (Tylenol) 650 mg PO Q4HPRN PRN mild pain 10/09/23
acetaminophen 500 mg tablet (Tylenol Extra Strength) 1,000 mg PO BID 10/09/23
alendronate 70 mg tablet (Fosamax) 70 mg PO HANLEY 10/09/23
azelastine 137 mcg (0.1 %) nasal spray aerosol 1 spray intranasal DAILYPRN PRN allergies 10/09/23
bisacodyl 10 mg rectal suppository (Dulcolax (bisacodyl)) 10 mg MI [id number] PRN if no bm aftr mom 10/09/23
carbamide peroxide 6.5 % ear drops (Debrox) 4 drp otic (ear) BIDPRN PRN cerumen 10/09/23
cetirizine 10 mg tablet (Zyrtec) 10 mg PO DAILY PRN allergies 10/09/23
chlorpheniramine-dextromethorphan 4 mg-30 mg tablet (Coricidin HBP Cough and Cold) 1 tab PO Q6HPRN PRN cough 10/09/23
cholecalciferol (vitamin D3) 1,250 mcg (50,000 unit) tablet 1,250 mcg PO QMONTH 10/09/23
clopidogrel 75 mg tablet (Plavix) 75 mg PO DAILY 10/09/23
eucalyptus-menthol oral mucosal lozenge 3.1 mg mucous membrane Q6HPRN PRN cough 10/09/23
ezetimibe 10 mg tablet (Zetia) 10 mg PO DAILY 10/09/23
lidocaine 4 % topical patch 1 patch topical DAILYPRN PRN b/l knee 10/09/23
magnesium hydroxide 400 mg/5 mL oral suspension (Milk of Magnesia) 2,400 mg PO HSPRN PRN constipation 10/09/23
methimazole 5 mg tablet 5 mg PO MOWEFR@0800 10/09/23
pantoprazole 20 mg tablet,delayed release (Protonix) 20 mg PO DAILY 10/09/23
rosuvastatin 40 mg tablet (Crestor) 40 mg PO QPM 10/09/23
sertraline 25 mg tablet 12.5 mg PO MOWEFR@0810/09/23
sotalol 80 mg tablet 40 mg PO BID 10/09/23
trazodone 50 mg tablet 50 mg PO HS 10/09/23
alprazolam 0.25 mg tablet (Xanax) 0.25 mg PO BIDPRN PRN if cant sleep after 0200am #10 tabs 10/13/23
cephalexin 500 mg capsule 500 mg PO Q8H #21 caps 10/13/23
Home Medication Changes
Chlorthalidone and and potassium supplement stopped
Pending Results: No
[2023-10-13] MEDS: TYLENOL 650 MG PO (15:47)
--- NOTE | 2023-10-13 16:55 | CON.MD ---
Consultation - Medical
-
Chief complaint: Intermittent right ear pain
History of present illness: This 88-year-old woman with a history of dementia presents with intermittent right ear pain. She has no drainage from the ear and has not noted any significant change in hearing. She is not a very good historian. The
left ear does not seem to bother her. The right ear is not currently bothering her. She is otherwise healthy. She has had problems with cerumen impactions in the past.Past medical history:
Allergies: Penicillins, sulfa medications
Home medications: Acetaminophen 1000 mg p.o. twice daily
Fosamax 70 mg p.o. q. Thursday
Alprazolam 0.25 mg p.o. twice daily as needed
Azelastine 2 sprays each nostril as needed
Dulcolax 10 mg AR every 72 hours as needed
Cephalexin 500 mg p.o. Q8
Zyrtec 10 mg p.o. daily as needed
Cholecalciferol vitamin D3 1250 mcg p.o. monthly
Plavix 75 mg p.o. daily
Coricidin HBP cough and cold 1 tablet p.o. every 6 hours as needed
Debrox 4 drops twice daily as needed
Eucalyptus�menthol 3.1 mg every 6 hours as needed cough
Zetia 10 mg p.o. daily
Lidocaine patch topical every day as needed
Milk of magnesia 2400 mg p.o. at bedtime as needed
Methimazole 5 mg p.o. q. Thursday and Thursday
Pantoprazole 20 mg p.o. daily
Rosuvastatin 40 mg p.o. every afternoon
Florastor 250 mg p.o. every afternoon
Sertraline 12.5 mg p.o. q. Thursday
Sotalol 40 mg p.o. twice daily
Trazodone 50 mg p.o. nightly
Medical problems:
Prepatellar bursitis
Osteoporosis
Essential hypertension
Hyperlipidemia
Hyponatremia
Alzheimer's dementia
Abscess of right knee
Cellulitis
Hospitalizations:
Patient is currently hospitalized at [facility].
Past surgical history:
Status post knee replacement surgery in 2017
Review of systems: Positive for right ear pain, positive for hearing loss positive for cerumen impactions, negative for drainage from the ear, negative for change in hearing
Physical examination:
Head atraumatic and normocephalic
Eyes: Extraocular movements are intact and pupils are equal and reactive to light
Nose: Clear mucosa without infection
Neck: Supple without adenopathy
Skin: Normal without suspicious lesions
Ears: Cerumen impaction on the right side was cleared, eardrums ear canals are normal without infection or fluid.
Nose: Pale swelling consistent with allergies but no evidence of infection.
Thyroid gland: Normal to palpation
Salivary glands: Without swelling or infection
Neurologic exam: 2 through 12 are intact
Voice: Normal tone and volume
Jaw: The patient has significant crepitus and tenderness over temporomandibular joint of the right side
Assessment/plan: This 88-year-old woman with dementia presents with intermittent ear pain on the right side. She was noted have a cerumen impaction on the right side which was removed. Ear canals and eardrums are otherwise clear without signs of
fluid or infection. It would appear that her ear pain is secondary to arthritis of her temporomandibular joint/TMJ. Heat and Advil may be helpful. She should try to relax her jaw and avoid clenching her teeth. She should avoid chewing crunchy
foods. I will see the patient back as needed.
--- NOTE | 2023-10-14 09:41 | CM ---
(late entry)
CM following re: d/c planning
Chart reviewed
Pt is medically stable for d/c
Pt to return to [facility]
LOMN and inhouse transport forms completed and provided to
Pt transport confirmed for 5p
IMM reviewed and emailed to patient's daughter
No additional d/c needs noted
PLAN; d/c to [facility]
Report: [phone]
== END 2023-10-13 18:44 | DRG 603 ==
LOC: 4 EAST ACU 16:31
PROVIDERS: Physician Assistant; ADMITTING PHYSICIAN Hospitalist; ATTENDING PHYSICIAN Internal Medicine; CONSULT PHYSICIAN Orthopaedic Surgery; CONSULT PHYSICIAN Otolaryngology Facial Plastic Surgery; EMERGENCY PHYSICIAN Emergency Medicine; FAMILY PHYSICIAN Student in an Organized Health Care Education/Training Program
PROC: 3E1B78Z Irrigation of Ear using Irrigating Substance, Via Natural or Artificial Opening (ICD-10-PCS; 2023-10-13)
DX: L02.415 Cutaneous abscess of right lower limb (principal); L03.90 Cellulitis, unspecified; F02.83 Dementia in other diseases classified elsewhere, unspecified severity, with mood disturbance; E87.1 Hypo-osmolality and hyponatremia; M70.41 Prepatellar bursitis, right knee; Z11.52 Encounter for screening for COVID-19; Z66 Do not resuscitate; F32.9 Major depressive disorder, single episode, unspecified; G30.9 Alzheimer's disease, unspecified; H61.21 Impacted cerumen, right ear; E78.5 Hyperlipidemia, unspecified; I10 Essential (primary) hypertension; M81.0 Age-related osteoporosis without current pathological fracture; E87.6 Hypokalemia; E05.90 Thyrotoxicosis, unspecified without thyrotoxic crisis or storm; M26.641 Arthritis of right temporomandibular joint
CPT/HCPCS: 70450; 71046; 73560; 80048; 80053; 80202; 81003; 81015; 83605; 83735; 83935; 84300; 85025; 87040; 87070; 87502; 87811; 93005; 96365; 97162; 97166; 99285

== ENCOUNTER → 2023-10-30 10:53 | Outpatient (REF) | payer MEDICARE, OTHER, SELFPAY ==
[2023-10-30 12:02] LABS: % Eosinophils 1.7 % (0-6); % Immature Granulocytes 0.2 % (0-0.5); % Monocytes 9.1 % (1.7-9.3); Absolute Basophils 0.1 10^3/uL (0-0.2); Absolute Eosinophils 0.1 10^3/uL (0-0.7); Absolute Lymphocytes 1.2 10^3/uL (1.2-3.4); Absolute Monocytes 0.6 10^3/uL (0.1-0.6); Absolute Neutrophils 4.2 10^3/uL (1.4-6.5); Hematocrit 27.4 % (37.0-47.0); Hemoglobin 8.7 g/dL (12.0-16.0); Mean Corp Hgb Conc. 31.8 g/dL (33.0-37.0); Mean Corpuscular Hgb 28.2 pg (27.0-31.0); Mean Corpuscular Volume 88.7 fL (81.0-99.0); Nucleated Red Blood Cells % 0 %; Platelet Count 353 10^3/uL (130-400); Red Blood Cell Count 3.09 10^6/uL (4.20-5.40); Red Cell Dist. Width 13.3 % (11.5-14.5); White Blood Cell Count 6.1 10^3/uL (4.8-10.8)
[2023-10-30 12:12] LABS: Blood Urea Nitrogen 14 mg/dl (7-17); Calcium 8.5 mg/dl (8.4-10.2); Carbon Dioxide 27 mmol/L (22-30); Chloride 103 mmol/L (98-107); Glucose 88 mg/dl (70-99); Magnesium 1.8 mg/dl (1.6-2.3); Potassium 3.9 mmol/L (3.5-5.1); Sodium 131 mmol/L (135-145); eGFR > 60.00
== END ==
LOC: OLABN 10:53
PROVIDERS: ATTENDING PHYSICIAN Student in an Organized Health Care Education/Training Program
DX: R22.43 Localized swelling, mass and lump, lower limb, bilateral (principal); I73.9 Peripheral vascular disease, unspecified
CPT/HCPCS: 36415; 80048; 83735; 85025

== ENCOUNTER 2023-10-30 22:33 | Inpatient (IN) | payer MEDICARE, OTHER, SELFPAY ==
[2023-10-30] VITALS (10 sets, daily range): BP systolic 110–177; BP diastolic 50–94; BMI 22.3; BMI 24.1
--- NOTE | 2023-10-30 18:52 | ED.GENMED ---
History of Present Illness
General
Chief Complaint: Abnormal Lab Value
Source: patient and family (daughter)
Exam Limitations: dementia (Able to answer some questions)
Time Seen by Provider: 10/30/23 18:28
Travel History
Have you had any contact with someone who has COVID-19?: No
Do you have any symptoms of coronavirus? Fever > 100 degrees, chills, cough, shortness of breath, sore throat, loss of taste or smell, muscle aches, or headache?: No
History of Present Illness
History of Present Illness:
This is a 88 year old female that comes in with c/o swelling and right knee pain. Daughter states that she was here three weeks ago for a right knee abscess and SOB. States that she was given Vancomycin and sent back to the longterm on Keflex.
states that last night her right leg was more swelling then the left and she c/o pain in both legs with the right being the worse. States that today they ordered labs and sad that her Hgb was low as she was 11.9 and now was 8.7. States that they
felt she needed to come to the hospital. Denies any fever, chills, chest pain, SOB, abd pain, nausea, vomiting, diarrhea, headache, dizziness, urinary burning.
Past History
Past History
ED Past Medical History: Arrthythmia (Atrial fib), Cancer (Melanoma), HTN, Hypercholesterolemia, Psychiatric (Anxiety, Depression) and Other (Dementia, Arthritis)
ED Past Surgical History: Cardiac (TAVT, depression Pacemaker), Orthopedic (Right knee replacement) and Other (Left second toe removed, Right third toe removed)
Social History
Tobacco: Non-smoker
Alcohol: None
Personal:
Living: longterm
Review of Systems
Review of Systems
Unable to obtain full review of systems at this time due to: dementia (Patient able to answer some questions)
Other source history: family
All Other Systems: ROS reviewed and negative except as documented in HPI and ROS
Constitutional: Reports no symptoms; Denies fever or chills
EENT: Reports no symptoms
Respiratory: Reports no symptoms; Denies cough or trouble breathing
Cardiac: Reports no symptoms; Denies chest pain
ABD/GI: Reports no symptoms; Denies abdominal pain, nausea, vomiting or diarrhea
: Reports no symptoms; Denies dysuria, frequency or urgency
Musculoskeletal: Reports joint pain (right knee pain) and edema (R>L )
Skin: Reports other (Small wound on right knee)
Neurological: Reports no symptoms; Denies dizzy or headache
Psychiatric: Reports no symptoms
Phy Exam
General Physical Exam
General Presentation: no apparent distress
General age: appears stated age
General Skin: warm and dry
General Habitus: elderly
General Mental: usual mental status
General Hydration: appears well hydrated
ENT Exam
ENT Exam: TM's normal, pharynx normal and neck supple
Eye Exam
Eye Exam: EOMI
Cardiovascular Exam
Cardiovascular Exam: regular rate/rhythm, normal peripheral pulses and other (Murmur)
Pulmonary Exam
Pulmonary Exam: no respiratory distress, chest non tender, no rhonchi, no wheezing, no cough and other (decreaesd breath sounds left base and fine rales right base)
Gastrointestinal Exam
Gastrointestinal Exam: normal bowel sounds, non tender, soft, no organomegaly, no pulsatile mass and non distended
Musculoskeletal Exam
Musculoskeletal Exam: edema (Bilateral lower legs +2 pitting edema R>L) and other (Right knee pain with palpation, possible effusion)
Skin Exam
Skin Exam: normal color, warm/dry and other (Slight redness of the right knee and proximal lower leg. Increased warmth)
Psychiatric Exam
Psychiatric Exam: normal mood/affect
Course
Orders/Labs/Results
Orders:
Orders
10/30/23 Breakfast
Cholesterol Lowering
Fluid Restriction: 1200 mL/day (40 oz)
Cholesterol Lowering: Sodium, 2 Gram
10/30/23 08:00
Lidocaine [Lidocaine 4% Patch] 1 patch TOPICAL DAILYPRN PRN
10/30/23 18:51
Knee, Right 4 or More Views [CR Knee- Right 4 Or More View*] Urgent
Comment:
Reason For Exam: pain and swelling
US Periph Venous LOWER Ext Frankie Urgent
Comment:
Reason For Exam: Lower leg swelling and pain
10/30/23 18:53
C-Reactive Protein Urgent
Comment: ADD ON
Complete Blood Count/With Diff Urgent
Comprehensive Metabolic Panel Urgent
Erythrocyte Sed Rate Urgent
Comment: ADD ON
Lactic Acid Q4H
Comment: ON ICE, CANCEL 2ND ORDER IF FIRST LACTIC ACID LEVEL <2
Blood Culture Q30M
BAYLEE Source: Blood/Venous
Specimen Description:
Comment: FROM 2 SEPARATE SITES
Blood Culture Q30M
BAYLEE Source: Blood/Venous
Specimen Description:
Comment: FROM 2 SEPARATE SITES
10/30/23 18:54
Add On- LAB Urgent
Tests Added?: Pro-BNP
CR Chest - 2 Views Urgent
Comment:
Reason For Exam: SOB
10/30/23 19:00
NT-proBNP Urgent
Troponin I Urgent
Wound Culture [Wound/Abscess/Other Culture] Urgent
BAYLEE Source: Knee
Specimen Description: Right
Date Specimen was Collected: 10/30/23
Time Specimen was Collected: 18:59
10/30/23 20:54
Add On- LAB Urgent
Tests Added?: Sed rate, CRP
10/30/23 21:33
Vancomycin 1 Gram/200 ml [Vancocin] 1 gram in 200 ml IV NOW
10/30/23 22:03
Furosemide [Lasix] 40 mg IV NOW STA
10/30/23 22:08
Admit/Transfer Patient As Directed
Co-Sign Provider:
Level of Care: Inpatient admission
Assign to:: Telemetry
Physician / Group: bernie carnes
Diagnosis: bursitis
Reason for Telemetry: Arrhythmia
Date to Stop Telemetry: 11/02/23
Time to Stop Telemetry: 11:00
Reason for Hospitalization: bursitis
Expected length of stay greater than two midnights?: Yes
ELOS- Estimated Length of Stay in days: 3
I certify the patient meets the requirements for IP care: Yes
10/30/23 22:10
Code Status As Directed
Resuscitation Status: Do not resuscitate
Reached after discussion with pt or family/Healthcare POA: Yes
DNR Bracelet Application ONCE
10/30/23 23:42
Alprazolam [Xanax] 0.25 mg PO BIDPRN PRN
Hydrocodone 5/APAP 325 [[place] 5/325] 1 tablet PO Q8HPRN PRN
10/30/23 23:42
Consult Notification Routine
Specialty to Notify: Orthopedics
ORTHOPEDIC CONSULT Routine
Consulting Provider: Andre Sandra
Was physician already notified: No
Reason for consult: right knee bursitis
Activity As Directed
Activity Level: As Tolerated
Vital Signs As Directed
Frequency: Per unit guidelines
DX Deep Vein Thrombosis Video Routine
10/30/23 23:45
VANCOMYCIN Pharmacy to Dose [VANCOCIN Pharmacy to Dose] 1 each Pharmacy To Prepare [Call Pharmacy To Prepare] 0 ml IV PER PROTOCOL
10/31/23 06:00
Basic Metabolic Panel IN AM
Complete Blood Count/No Diff IN AM
LFT [Wshtd-Nrgf-Sswecdw] IN AM
Physical Therapy Consult [Pt Eval And Treat] IN AM
Activity Level: As Tolerated
10/31/23 08:00
Acetaminophen [Tylenol] 1,000 mg PO BID
Clopidogrel Bisulfate [Plavix] 75 mg PO DAILY
Ezetimibe [Zetia] 10 mg PO DAILY
Pantoprazole [Protonix] 20 mg PO DAILY
10/31/23 08:30
Albuterol Nebs [Ventolin Nebules] 2.5 mg INH R TID@0830,1330,1830
Sotalol [Betapace] 40 mg PO BID@0830,1830
10/31/23 18:00
Cetirizine HCl [Zyrtec] 10 mg PO QPM
Enoxaparin Sodium [Lovenox] 40 mg SC QPM
Rosuvastatin Calcium [Crestor] 40 mg PO QPM
Saccharomyces Boulardii [Florastor] 250 mg PO QPM
10/31/23 22:00
Trazodone [Desyrel] 50 mg PO HS
11/01/23 06:00
Basic Metabolic Panel IN AM
Complete Blood Count/No Diff IN AM
LFT [Yolbs-Qwlz-Hhdcnln] IN AM
11/02/23 06:00
Basic Metabolic Panel IN AM
Complete Blood Count/No Diff IN AM
11/02/23 08:00
Methimazole [Tapazole] 5 mg PO MOWEFR@0800
11/02/23 08:30
Sertraline HCl [Zoloft] 12.5 mg PO MOWEFR@0830
11/02/23 11:00
DC Protocol for Telemetry ONCE
11/03/23 06:00
Basic Metabolic Panel IN AM
Complete Blood Count/No Diff IN AM
11/04/23 06:00
Complete Blood Count/No Diff IN AM
Abnormal Lab Results
10/30/23
18:53
RBC 3.37 L 10^6/uL
(4.20-5.40)
Hgb 9.8 L g/dL
(12.0-16.0)
Hct 29.3 L %
(37.0-47.0)
Plt Count 414 H 10^3/uL
(130-400)
Absolute Lymphs (auto) 1.1 L 10^3/uL
(1.2-3.4)
Absolute Monos (auto) 0.7 H 10^3/uL
(0.1-0.6)
Lymphocytes % 15.3 L %
(20.5-51.1)
Monocytes % 10.7 H %
(1.7-9.3)
ESR 126 H mm/hour
(0-20)
Sodium 132 L mmol/L
(135-145)
Glucose 186 H mg/dl
(70-99)
AST 54 H U/L
(14-36)
ALT 45 H U/L
(0-35)
C-Reactive Protein 63.00 H mg/L
(0.0-10.00)
Total Protein 6.1 L g/dl
(6.3-8.2)
Albumin 3.1 L g/dl
(3.5-5.0)
10/30/23 18:53
10/30/23 18:53
H/H slightly low. Plt slightly elevated. Sed rate elevated to 126, Sodium slightly low. Glucose nonfasting. AST/ALT slightly elevated. Total protein low. Troponin 0.018, Pro-BNP 3260. Lactic acid 2.0
CRP elevated at 63.00
Vital Signs
Initial and Last Documented VS:
Initial Vital Signs
Temp Pulse Resp BP Pulse Ox
99.2 F 75 20 144/61 96
10/30/23 18:22 10/30/23 18:22 10/30/23 18:22 10/30/23 18:22 10/30/23 18:22
Last Documented Vital Signs
Temp Pulse Resp BP Pulse Ox
99.2 F 71 25 145/67 94
10/30/23 18:22 10/30/23 23:00 10/30/23 23:00 10/30/23 23:00 10/30/23 23:00
MDM/Problems Addressed
Differential Diagnosis Includes:
CHF, Right knee cellulitis, DVT
MDM/Problems Addressed:
This is a 88 year old female that comes in with increased swelling of the lower legs and pain in the legs R>L. Patient was here 3 weeks ago for abscess in the right knee. This was treated with vancomycin and discharge on Keflex
Will check labs, US and X-ray knee.
Chronic conditions affecting care:
NA
Acute Exacerbation and/or Progression of Chronic Illness:
Right knee infection
*Radiology
Radiology exam reviewed: radiology read reviewed (Chest-No acute cardiopulmonary process. US- No sonographic evidence for lower extremity venous thrombosis. Knee X-ray- No acute fracture or dislocation. Stable arthroplasty hardware and patellar
fragmentation. Moderate to large knee joint effusion. )
*Pulse Oximetry
Patient hypoxic: no
*Water Use Inspector Interpretation
Heart Rate: 73
Rhythm: ventricular paced
*Critical Care Note
Total Time (30-74mins, 75-104mins- exclusive of procedures): Not Applicable
ED Attending Note
-
Portions of this chart may have been created with voice recognition software.� Occasional wrong word or��sound alike� substitutions may have occurred due to the inherent limitations of voice recognition software.
Discharge Plan
Departure
Patient Disposition: Admit
Date of Disposition: 10/30/23
Time of Disposition: 21:37
Admit to: Med/Surg
Presentation/result/management discussed w/ accepting MD/DO: Hospitalist
Patient with high blood pressure during this ER visit?: Yes
Condition: Good
Discharge Problem:
Acute pain of right knee, Localized swelling of both lower legs, Effusion of knee joint right
Interventions
Interventions:
*Risk Screen - Suicide Last Done: 10/30/23 18:22
*General Assessment Last Done: 10/30/23 18:22
*Neglect/Abuse Screening Last Done: 10/30/23 18:22
ED- Fall Risk Assessment Last Done: 10/30/23 18:39
*ED COVID-19 Vaccine History Last Done: 10/30/23 18:39
*Nursing Disposition Last Done: 10/30/23 23:17
Discharge Date and Time
Discharge Date/Time: 10/30/23 23:18
[2023-10-30 19:06] LABS: % Basophils 0.7 % (0-2); % Eosinophils 1.7 % (0-6); % Immature Granulocytes 0.3 % (0-0.5); % Lymphocytes 15.3 % (20.5-51.1); % Monocytes 10.7 % (1.7-9.3); % Neutrophils 71.3 % (42.2-75.2); Absolute Basophils 0.1 10^3/uL (0-0.2); Absolute Eosinophils 0.1 10^3/uL (0-0.7); Absolute Lymphocytes 1.1 10^3/uL (1.2-3.4); Absolute Monocytes 0.7 10^3/uL (0.1-0.6); Absolute Neutrophils 4.9 10^3/uL (1.4-6.5); Hematocrit 29.3 % (37.0-47.0); Hemoglobin 9.8 g/dL (12.0-16.0); Mean Corp Hgb Conc. 33.4 g/dL (33.0-37.0); Mean Corpuscular Hgb 29.1 pg (27.0-31.0); Mean Corpuscular Volume 86.9 fL (81.0-99.0); Mean Platelet Volume 9.1 fL (7.4-10.4); Nucleated Red Blood Cells % 0 %; Platelet Count 414 10^3/uL (130-400); Red Blood Cell Count 3.37 10^6/uL (4.20-5.40); Red Cell Dist. Width 13.3 % (11.5-14.5); White Blood Cell Count 6.9 10^3/uL (4.8-10.8)
[2023-10-30 19:16] LABS: ALT (SGPT) 45 U/L (0-35); AST (SGOT) 54 U/L (14-36); Albumin 3.1 g/dl (3.5-5.0); Alkaline Phosphatase 120 U/L (38-126); Blood Urea Nitrogen 16 mg/dl (7-17); Calcium 8.7 mg/dl (8.4-10.2); Carbon Dioxide 25 mmol/L (22-30); Chloride 102 mmol/L (98-107); Estimated Creatinine Clearance 41 ml/min; Glucose 186 mg/dl (70-99); Potassium 3.8 mmol/L (3.5-5.1); Sodium 132 mmol/L (135-145); Total Bilirubin 0.8 mg/dl (0.2-1.3); Total Protein 6.1 g/dl (6.3-8.2); eGFR > 60.00
[2023-10-30 19:31] LABS: Troponin I 0.018 ng/ml
[2023-10-30 19:58] LABS: NT-proBNP 3260 pg/ml
[2023-10-30 21:09] LABS: Erythrocyte Sed Rate 126 mm/hour (0-20)
--- NOTE | 2023-10-30 21:38 | HPS.HSE ---
Family Physician
-
Family Physician: Rios Augustin,
Chief Complaint
-
right LE swelling
History of Present Illness
88 year old female with PMH for A-fib, melanoma, hypertension, hyperlipidemia, anxiety, depression, dementia presented to us with right knee swelling, right LE swelling which daughter noticed last night. patient was admitted here with right knee
swelling beginning of month. she was sent [facility] on Keflex. she was also restarted on Keflex at [facility]. it looked better for few days. last night again noticed swelling to right knee. Denies any fever, chills, chest pain, SOB, abd pain, nausea,
vomiting, diarrhea, headache, dizziness, urinary burning.
elevated ESR, knee x ray with moderate to large knee joint effusion. initiated on vancomycin
Medical History
Past Medical History
Past Medical History: Reports Other
Additional Past Medical History:
atrial fibrillation NOS
Primary thrombophilia
Congenital absence of left hand
hyperlipidemia
Protein calorie malnutrition
Peripheral vascular disease
Vitamin D deficiency
Dementia
Major depression
Osteoporosis
Bilateral sensorineural hearing loss
Past Surgical History: Reports Other
Additional Past Surgical History:
Permanent pacemaker
AVR
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
Social History
Tobacco: Non-smoker
Drug: None
Personal: Single
Living: Usp
Family History
Family History: Not pertinent
Allergies / Home Medications
Allergies reflects when Allergies were last updated in [employer].
Home Medications with original date entered in [employer]
Allergy/Medication List:
Allergies
Allergy/AdvReac Type Severity Reaction Status Date / Time
Penicillins Allergy Unknown Verified 10/30/23 18:38
Sulfa (Sulfonamide Allergy Unknown Verified 10/30/23 18:38
Antibiotics)
Home Medications
Saccharomyces boulardii 250 mg capsule (Florastor) 250 mg PO QPM 10/09/23
acetaminophen 500 mg tablet (Tylenol Extra Strength) 1,000 mg PO BID 10/09/23
alendronate 70 mg tablet (Fosamax) 70 mg PO HANLEY 10/09/23
azelastine 137 mcg (0.1 %) nasal spray aerosol 1 spray intranasal DAILYPRN PRN allergies 10/09/23
bisacodyl 10 mg rectal suppository (Dulcolax (bisacodyl)) 10 mg AL DAILYPRN PRN if no bm aftr mom 10/09/23
carbamide peroxide 6.5 % ear drops (Debrox) 4 drp EACH EAR BIDPRN PRN cerumen 10/09/23
cetirizine 10 mg tablet (Zyrtec) 10 mg PO QPM 10/09/23
chlorpheniramine-dextromethorphan 4 mg-30 mg tablet (Coricidin HBP Cough and Cold) 1 tab PO Q6HPRN PRN cough 10/09/23
cholecalciferol (vitamin D3) 1,250 mcg (50,000 unit) tablet 1,250 mcg PO QMONTH 10/09/23
clopidogrel 75 mg tablet (Plavix) 75 mg PO DAILY 10/09/23
eucalyptus-menthol oral mucosal lozenge 3.1 mg mucous membrane Q6HPRN PRN cough 10/09/23
ezetimibe 10 mg tablet (Zetia) 10 mg PO DAILY 10/09/23
lidocaine 4 % topical patch 1 patch topical DAILYPRN PRN b/l knee 10/09/23
magnesium hydroxide 400 mg/5 mL oral suspension (Milk of Magnesia) 2,400 mg PO HSPRN PRN constipation 10/09/23
methimazole 5 mg tablet 5 mg PO MOWEFR@0800 10/09/23
pantoprazole 20 mg tablet,delayed release (Protonix) 20 mg PO DAILY 10/09/23
rosuvastatin 40 mg tablet (Crestor) 40 mg PO QPM 10/09/23
sertraline 25 mg tablet 12.5 mg PO MOWEFR@0830 10/09/23
sotalol 80 mg tablet 40 mg PO BID@0830,1830 10/09/23
trazodone 50 mg tablet 50 mg PO HS 10/09/23
alprazolam 0.25 mg tablet (Xanax) 0.25 mg PO BIDPRN PRN if cant sleep after 0200am #10 tabs 10/13/23
albuterol sulfate 2.5 mg/3 mL (0.083 %) solution for nebulization 2.5 mg inhalation R TID@0830,1330,1830 10/30/23
clindamycin HCl 300 mg capsule 300 mg PO DAILYPRN PRN dental procedure 10/30/23
guaifenesin 100 mg/5 mL oral liquid 200 mg PO Q6H PRN cough 10/30/23
hydrocodone 5 mg-acetaminophen 325 mg tablet 1 tab PO Q8H PRN moderate pain 10/30/23
Review of Systems
-
Constitutional: Reports No Symptoms
EENT: Reports No Symptoms
Respiratory: Reports No Symptoms
Cardiac: Reports No Symptoms
Abdomen/GI: Reports No Symptoms
: Reports No Symptoms
Musculoskeletal: Reports Other (right knee swelling, redness, edema of LE)
Skin: Reports No Symptoms
Neurological: Reports No Symptoms
Endocrine: Reports No Symptoms
Hematologic/Lymphatic: Reports No Symptoms
Psych: Reports No Symptoms
Physical Exam
Vital Signs
Vital Signs
Temp Pulse Resp BP Pulse Ox
99.2 F 75 24 129/52 96
10/30/23 18:22 10/30/23 19:30 10/30/23 19:30 10/30/23 19:00 10/30/23 19:15
Physical Exam
General: Well Developed, Well Nourished and No Apparent Distress
HEENT: NormoCephalic, Moist mucous membranes and Atraumatic
Respiratory: Clear
Cardiac: S1/S2 and Regular Rhythm; No Murmur or Rub
GI: Soft, Non Tender, Non Distended and Normal Bowel Sounds; No Organomegaly
Rectal: Deferred by Provider
Musculoskeletal: No Clubbing, No Cyanosis and Other (right knee, LE swelling )
Skin: No Rash
Neuro: Nonfocal/grossly intact
Psych: Calm
Laboratory Results
-
10/30/23 18:53
10/30/23 18:53
Laboratory Results
Lactic Acid 2.0 mmol/L (0.7-2.0) 10/30/23 18:53
Total Bilirubin 0.8 mg/dl (0.2-1.3) 10/30/23 18:53
AST 54 U/L (14-36) H 10/30/23 18:53
ALT 45 U/L (0-35) H 10/30/23 18:53
Alkaline Phosphatase 120 U/L (38-126) 10/30/23 18:53
Troponin I 0.018 ng/ml 10/30/23 19:00
Data Reviewed
-
Diagnostic Radiology: Report Reviewed by me
CT Scan: Report Reviewed by me
Ultrasound: Report Reviewed by me
Lab Data: Labs Reviewed by me
Impression/Plan
-
# Right right knee pain/bilateral lower extremity swelling likely from suprapatellar bursitis
-Sed rate 126, CRP 63.00
-No sonographic evidence for lower extremity thrombosis
-Right knee x-ray with impression of No acute fracture or dislocation. Stable arthroplasty hardware and patellar fragmentation. Moderate to large knee joint effusion.
-Wound culture sent from ER
-Blood culture sent from ER
-iv vanco continued
-orthopedics consulted
# Anemia of chronic disease
-Hemoglobin 9.8
-ctm
# Chronic hyponatremia
-Sodium 132
-fluid restriction
# LFT elevation
-ctm
-no c/of abdominal pain
#hyperthyroidism
-methimazole continued
#GERD
-PPI continued
#paroxysmal atrial fib
-sotalol continued
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
#Hyperlipidemia -on Crestor,zetia
#essential hypertension -stable.
#Osteoporosis -on weekly Fosamax
#DNR
[2023-10-30] MEDS: VANCOCIN 200 IV (21:45)
--- NOTE | 2023-10-30 22:14 | W.PN.UPDATE ---
Update Note
Progress Note Update
This is an addendum to the H&P written by senior research fellow Clara Mathias on 10/30/2023.
Patient seen and examined independently with PERSONAL FINANCE INSTRUCTOR. 88-year-old female past medical history of recent right knee prepatellar bursitis/abscess, hyponatremia, dementia, hyperlipidemia, prior open heart surgery unclear details, essential hypertension,
osteoporosis, hyperthyroidism, presenting with worsening swelling and right knee pain as well as bilateral lower extremity edema with some edema blistering. No shortness of breath or waking or chest pain.
She was recently admitted for prepatellar bursitis treated with course of antibiotics and seen by orthopedics without need for drainage.
Examination of the knee reveals tenderness and swelling. Venous ultrasound negative for DVT. Knee x-ray shows moderate to large suprapatellar joint effusion. Patient underwent drainage of effusion and culture has been sent. Blood cultures also
sent. Most likely patient has persistent prepatellar bursitis. Vancomycin started. Orthopedics consulted.
Chest x-ray was checked due to increased lower extreme edema and concern for heart failure although chest x-ray unremarkable and patient not in CHF exacerbation.. Cardiac BNP of 3000 and mild transaminitis likely due to venous congestion from
underlying cardiomyopathy. Will give 40 IV Lasix dose.
Hemoglobin of 9.8 which is not significantly changed from her baseline hemoglobin of around 11.
[2023-10-30] MEDS: LASIX 40 MG IV (22:50)
--- NOTE | 2023-10-30 23:53 | PTCARENOTE ---
Patient arrived from ED. Patient is AAO x3, can be forgetful at times, on RA, in no acute distress. Patient is currently bedrest and has generalized weakness. Blanchable redness noted to sacrum. Foam dressing applied. Patient's RLE is edematous,
pink, and warm. RLE is elevated in bed. Positive b/l dorsalis pedis pulses palpated. Tele monitor applied. Patient oriented to room and call vaughan is within reach.
[2023-10-31] VITALS (8 sets, daily range): BP systolic 94–177; BP diastolic 47–81; PULSE 71; O2SAT 94; BMI 24.1
[2023-10-31] MEDS: TYLENOL 650 MG PO (03:14)
[2023-10-31] MEDS: ZETIA 10 MG PO (07:37)
[2023-10-31] MEDS: BETAPACE 40 MG PO ×2 (07:37→17:40)
[2023-10-31] MEDS: TYLENOL 1000 MG PO ×2 (07:37→21:39)
[2023-10-31] MEDS: PLAVIX 75 MG PO (07:37)
[2023-10-31] MEDS: PROTONIX 20 MG PO (07:38)
[2023-10-31] MEDS: VENTOLIN NEBULES 2.5 MG INH ×3 (07:46→20:57)
--- NOTE | 2023-10-31 08:13 | PHA.VAN.IN ---
Assessment
- Assessment
Renal Function: Appears similar to baseline
Maximum Temperature: 101.3
Minimum Temperature: 98.9
Historical Micro: History of MRSA infection
- Previous Dosing Experience
Previous Regimen: Vanc 750mg IV q24H
Date of Regimen: 10/13/2023
Provided Trough of: 9.4 (Some question as to whether or not this was accurate.)
Provided AUC of: 369
Patient's SCR is: Similar to previous dosing experience
Patient's weight is: Similar to previous dosing experience
AUC Dosing Plan
- Dosing Variables
Dosing Weight (kg): 56
Dosing CrCl (ml/min): 41
Vd coefficient (L/kg): 0.7
- Empiric Dosing
Initial / Loading Dose: Vanc 1gm @ 10/29 2144
Maintenance Regimen: Vanc 750mg IV q24H
Estimated AUC (mcg*h/mL): 507.43
Estimated Peak (mcg*h/mL): 31.76
Estimated Trough (mcg/ml): 13.12
Estimated Half Life (H): 18
- Monitoring
No levels ordered at this time: Consider levels after 11/02/2023 dose.
Pharmacokinetics Vancomycin I
- -
Patient Age: 88
Patient Sex: Female
Vancomycin Day #: 1
Indication: Skin And Soft Tissue
Requesting Provider: Clara Mathias
Pertinent Antimicrobial Allergies:
PCN = unknown; Sulfa = unknown
Height / Weight:
Height 5 ft
Actual Weight 55.962 kg
IBW in k.5kg
Adjusted BW in k.7kg
Pertinent Past Medical History: Failed outpatient therapy with Keflex for bursitis
- Vital Signs / Lab Results
Temp Pulse Resp BP Pulse Ox
99.2 F 72 16 174/76 93
10/31/23 04:35 10/31/23 07:52 10/31/23 07:52 10/31/23 03:29 10/31/23 07:52
Lab Results - Hematology
10/30/23
18:53
WBC 6.9
Lab Results - Chemistry
10/30/23
18:53
BUN 16
Creatinine 0.7
Estimated Creat Clear 41
Albumin 3.1 L
10/30/23 10/30/23
18:53 22:45
Lactic Acid 2.0 Cancelled
Microbiology Results
10/30/23 19:00 Gram Stain - Preliminary
Knee - Right
[2023-10-31 08:20] LABS: Hemoglobin 9.5 g/dL (12.0-16.0); Mean Corp Hgb Conc. 32.8 g/dL (33.0-37.0); Mean Corpuscular Hgb 28.4 pg (27.0-31.0); Mean Corpuscular Volume 86.8 fL (81.0-99.0); Mean Platelet Volume 9.3 fL (7.4-10.4); Platelet Count 376 10^3/uL (130-400); Red Blood Cell Count 3.34 10^6/uL (4.20-5.40); Red Cell Dist. Width 13.3 % (11.5-14.5); White Blood Cell Count 7.1 10^3/uL (4.8-10.8)
[2023-10-31 08:28] LABS: ALT (SGPT) 41 U/L (0-35); AST (SGOT) 42 U/L (14-36); Alkaline Phosphatase 97 U/L (38-126); Blood Urea Nitrogen 15 mg/dl (7-17); Calcium 8.5 mg/dl (8.4-10.2); Carbon Dioxide 30 mmol/L (22-30); Chloride 100 mmol/L (98-107); Direct Bilirubin 0.1 mg/dl (0.0-0.4); Estimated Creatinine Clearance 41 ml/min; Glucose 108 mg/dl (70-99); Potassium 3.4 mmol/L (3.5-5.1); Sodium 134 mmol/L (135-145); Total Bilirubin 0.6 mg/dl (0.2-1.3); Total Protein 5.9 g/dl (6.3-8.2); eGFR > 60.00
[2023-10-31] MEDS: VANCOCIN 150 IV (09:18)
--- NOTE | 2023-10-31 11:30 | W.PN.HOSP.TC ---
Today's Communication/Plan
-
Monitor vitals
See plan
ID and Ortho to evaluate
Continue with antibiotics
Give IV Lasix today
Replete potassium
Assessment / Plan
Assessment / Plan
General: Well Developed, Well Nourished and No Apparent Distress
HEENT: NormoCephalic, Moist mucous membranes and Atraumatic
Respiratory: Clear
Cardiac: S1/S2 and Regular Rhythm; No Murmur or Rub
GI: Soft, Non Tender, Non Distended and Normal Bowel Sounds; No Organomegaly
Rectal: Deferred by Provider
Musculoskeletal: No Clubbing, No Cyanosis and Other (right knee, LE swelling )
Skin: No Rash
Neuro: Nonfocal/grossly intact
Psych: Calm
Right right knee pain/bilateral lower extremity swelling likely from suprapatellar bursitis
-Sed rate 126, CRP 63.00
-No sonographic evidence for lower extremity thrombosis
-Right knee x-ray with impression of No acute fracture or dislocation. Stable arthroplasty hardware and patellar fragmentation. Moderate to large knee joint effusion.
-Wound culture sent from ER; not sure why no other studies sent
Last admission no culture was sent and patient was discharged eventually on p.o. antibiotics.
-Blood culture sent from ER
-iv vanco continued
-orthopedics consulted
ID evaluation
# Anemia of chronic disease
-Hemoglobin 9.8
-ctm
LE edema
Venous Doppler negative for DVT
proBNP elevated, IV Lasix given in the ED
Give another dose IV Lasix today
Check echo
Mild hypokalemia
Replete
# Chronic hyponatremia
-fluid restriction
# LFT elevation
-ctm
-no c/of abdominal pain
#hyperthyroidism
-methimazole continued
#GERD
-PPI continued
#paroxysmal atrial fib
-sotalol continued
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
#Hyperlipidemia -on Crestor,zetia
#essential hypertension -stable.
#Osteoporosis -on weekly Fosamax
#DNR
I spent a total of 52 minutes with the patient or on the floor. More than 50% of this time involved counseling and coordination of care.
Anticipated Discharge: > 48 hours
Subjective/Interval History
-
Date of Service: October 31, 2023
denies pain
Objective Data
-
Labs:
Laboratory Results
10/31/23
07:59
WBC 7.1
Hgb 9.5 L
Hct 29.0 L
Plt Count 376
Sodium 134 L
Potassium 3.4 L
Chloride 100
Carbon Dioxide 30
BUN 15
Creatinine 0.7
Glucose 108 H
Calcium 8.5
Total Bilirubin 0.6
AST 42 H
ALT 41 H
Alkaline Phosphatase 97
Vital Signs:
Vital Signs
Temp Pulse Resp BP Pulse Ox
98.8 F 72 16 149/66 93
10/31/23 07:51 10/31/23 07:52 10/31/23 07:52 10/31/23 07:51 10/31/23 07:52
I&O
10/30/23 10/31/23 11/01/23
06:59 06:59 06:59
Intake Total 240 / 240
Balance 240 / 240
[2023-10-31] MEDS: KCL 20 MEQ PO (11:50)
[2023-10-31] MEDS: LASIX 40 MG IV (11:50)
--- NOTE | 2023-10-31 12:18 | PTOTSP ---
SPEECH THERAPY SWALLOW EVALUATION:
Patient presents with clinical signs of oropharyngeal dysphagia, likely chronic related to dementia in the setting of advanced age. Patient remains at risk for aspiration given confusion. Recommend IDDSI Level 6 Soft and Bite size diet, thin
liquids. Medications whole or crushed in puree. Aspiration precautions including: Upright positioning; Assistance as needed with set-up; Intermittent supervision; Only eat when awake/alert; Small bites/sips; Slow rate of intake. Speech therapy to
follow, assess diet tolerance and modify as appropriate, monitor CXR and labs, provide education regarding aspiration risks/precautions, and provide continued diagnostic swallow therapy as appropriate.
RECOMMEND:
1) IDDSI Level 6 Soft and Bite size diet, thin liquids
2) Medications whole or crushed in puree
3) Aspiration precautions including: Upright positioning; Assistance as needed with set-up; Intermittent supervision; Only eat when awake/alert; Small bites/sips; Slow rate of intake
4) Speech therapy to follow, assess diet tolerance and modify as appropriate, monitor CXR and labs, provide education regarding aspiration risks/precautions, and provide continued diagnostic swallow therapy as appropriate
--- NOTE | 2023-10-31 14:42 | CON.ORTHO ---
Consultation
-
Date/Time Consultation Requested: 10/30/2023 2342
Date/Time Consultation Performed: 10/31/2023 1400
Requesting Provider: Clara Mathias
Performing Provider: SUZANNE Newton, Dr. Yoanna Mondragon
Reason for Consultation: R knee pain
Consultation - Orthopedics
History
88 year old female with significant of PMH A-fib and dementia admitted to [facility] for lower extremity pain and swelling. She is previously admitted approximately 2 weeks ago with suspicion of infected prepatellar bursitis and treated
with improvement with antibiotic regimen. There is report of return pain and swelling primarily about the right knee however there is swelling noted of the left knee. She has significant past surgical history of right knee replacement done at
[facility] in [facility] [address] Neymar Turner reported uncomplicated. Patient is able to ride some information with bilateral knee discomfort. Majority of other information collected from daughter
Allergies / Home Medications
Allergy/AdvReac Type Severity Reaction Status Date / Time
Penicillins Allergy Unknown Verified 10/30/23 18:38
Sulfa (Sulfonamide Allergy Unknown Verified 10/30/23 18:38
Antibiotics)
�Medication �Instructions �Recorded
Saccharomyces boulardii 250 mg 250 mg PO QPM 10/09/23
capsule (Florastor)
acetaminophen 500 mg tablet 1,000 mg PO BID 10/09/23
(Tylenol Extra Strength)
alendronate 70 mg tablet (Fosamax) 70 mg PO HANLEY 10/09/23
azelastine 137 mcg (0.1 %) nasal 1 spray intranasal DAILYPRN PRN 10/09/23
spray aerosol allergies
bisacodyl 10 mg rectal suppository 10 mg NV DAILYPRN PRN if no bm 10/09/23
(Dulcolax (bisacodyl)) aftr mom
carbamide peroxide 6.5 % ear drops 4 drp EACH EAR BIDPRN PRN cerumen 10/09/23
(Debrox)
cetirizine 10 mg tablet (Zyrtec) 10 mg PO QPM 10/09/23
chlorpheniramine-dextromethorphan 1 tab PO Q6HPRN PRN cough 10/09/23
4 mg-30 mg tablet (Coricidin HBP
Cough and Cold)
cholecalciferol (vitamin D3) 1,250 1,250 mcg PO QMONTH 10/09/23
mcg (50,000 unit) tablet
clopidogrel 75 mg tablet (Plavix) 75 mg PO DAILY 10/09/23
eucalyptus-menthol oral mucosal 3.1 mg mucous membrane Q6HPRN PRN 10/09/23
lozenge cough
ezetimibe 10 mg tablet (Zetia) 10 mg PO DAILY 10/09/23
lidocaine 4 % topical patch 1 patch topical DAILYPRN PRN b/l 10/09/23
knee
magnesium hydroxide 400 mg/5 mL 2,400 mg PO HSPRN PRN constipation 10/09/23
oral suspension (Milk of Magnesia)
methimazole 5 mg tablet 5 mg PO MOWEFR@0800 10/09/23
pantoprazole 20 mg tablet,delayed 20 mg PO DAILY 10/09/23
release (Protonix)
rosuvastatin 40 mg tablet (Crestor) 40 mg PO QPM 10/09/23
sertraline 25 mg tablet 12.5 mg PO MOWEFR@0830 10/09/23
sotalol 80 mg tablet 40 mg PO BID@0830,1830 10/09/23
trazodone 50 mg tablet 50 mg PO HS 10/09/23
alprazolam 0.25 mg tablet (Xanax) 0.25 mg PO BIDPRN PRN if cant 10/13/23
sleep after 0200am #10 tabs
albuterol sulfate 2.5 mg/3 mL 2.5 mg inhalation R 10/30/23
(0.083 %) solution for nebulization TID@0830,1330,1830
clindamycin HCl 300 mg capsule 300 mg PO DAILYPRN PRN dental 10/30/23
procedure
guaifenesin 100 mg/5 mL oral liquid 200 mg PO Q6H PRN cough 10/30/23
hydrocodone 5 mg-acetaminophen 325 1 tab PO Q8H PRN moderate pain 10/30/23
mg tablet
Past Medical History: Reports Other
Additional Past Medical History:
atrial fibrillation NOS
Primary thrombophilia
Congenital absence of left hand
hyperlipidemia
Protein calorie malnutrition
Peripheral vascular disease
Vitamin D deficiency
Dementia
Major depression
Osteoporosis
Bilateral sensorineural hearing loss
Past Surgical History: Reports Other
Additional Past Surgical History:
Permanent pacemaker
AVR
Right total knee replacement -2016
Social History
Tobacco: Non-smoker
Drug: None
Personal: Single
Living: Intermediate
Family History
Family History: Not pertinent
Allergies / Home Medications
Allergies reflects when Allergies were last updated in [employer].
Home Medications with original date entered in [employer]
Vital Signs / Lab Results
Temp Pulse Resp BP Pulse Ox
98.1 F 78 16 121/51 95
10/31/23 11:57 10/31/23 13:28 10/31/23 13:28 10/31/23 11:57 10/31/23 13:28
10/31/23 07:59
10/31/23 07:59
WBC: 7.1 CRP 63 ESR 126
Imaging: X-rays show status post right total knee arthroplasty. Possible erosive changes of the patella but no evidence of acute osseous abnormality or hardware complication
Physical examination: Examination of the right knee shows a superficial blister with overlying skin with no active drainage. Minimal bogginess to the prepatellar bursa. There is whole joint swelling and effusion present. Neurovascular intact
L3-S1. Range of motion with reported discomfort but demonstrates 0 to 90 degrees.
Examination of the left knee shows large effusion. Valgus deformity. Neurovascular intact L3-S1 range of motion 0 to 115 degrees
Assessment / Plan
88-year-old female significant past medical history of atrial fibrillation and dementia and relative past surgical history status post right total knee arthroplasty with Dr. Neymar Turner at [facility] in [facility] in 2017
uncomplicated with previous admission for concern for septic bursitis with readmission for right knee pain with what appears to be improving bursitis to near resolution and whole joint swelling but does appear bilateral
-Long discussion was had with the daughter the patient with concern for effusion of the right knee with underlying total joint arthroplasty. We discussed differential diagnosis of inflammatory arthropathy, hemarthrosis, or possible periprosthetic
joint infection. Given that the symptoms are bilateral it is hopeful that there is more of an inflammatory arthropathy such as calcium pyrophosphate disease but would perform aspiration first for further evaluation. We did discuss that current
antibiotics may affect culture accuracy as well.
-Will plan for right knee aspiration and continue following by markers and definitive treatment plan contingent upon aspiration results. Will defer aspiration of the left knee is minimally symptomatic at this time
--- NOTE | 2023-10-31 15:01 | CON.ID ---
Consultation
-
Date/Time Consultation Requested: 10/31/2023 1136
Date/Time Consultation Performed: 10/31/2023 1440
Requesting Provider: Dr. Alonso
Performing Provider: Dr. Silva
Reason for Consultation: Right knee infection
Chief Complaint / Past History
History of Present Illness
Shelly Flowers is an 88-year-old female being evaluated at the request of Dr. Alonso in regards to right knee discomfort and suspected infection. History is obtained from chart review, along with patient interview, although patient was not able to
provide any significant history for me.
The patient recently was admitted to [facility] on 10/09/2023 secondary to weakness, fever, along with erythema and swelling of the right knee. She reportedly had a temperature of 101 at her facility. She recently had been started on
doxycycline for the treatment of presumed cellulitis of the right knee. Because of increased confusion and general decline she was brought to the emergency room for further evaluation. During her hospital stay she was assessed for infection and
suspected to have a right knee prepatellar bursitis. She improved on IV vancomycin, and was ultimately discharged on 10/12 back to the nursing facility, to continue with cephalexin through 10/19.
She presents back to [facility] yesterday with complaints of ongoing right knee pain. According to reviewed notes she developed increasing swelling of the right leg the prior evening. Routine labs were ordered and her hemoglobin was found
to be low and further workup was requested at the hospital. The patient has been started on empiric antibiotics. Infectious Diseases is asked to comment upon further antibiotic management.
At present, the patient reports right knee discomfort, although has a difficult time localizing the pain. She denies any cough or congestion.
Past History
Additional Past Medical History:
Atrial fibrillation
Congenital absence of left hand
Dyslipidemia
Protein calorie malnutrition
PVD
Dementia
Depression
Osteoporosis
Hearing loss
Additional Past Surgical History:
Right knee replacement (2016)
AVR
PPM placement
Foot surgery
Allergy History:
Penicillins Allergy (Verified 10/30/23 18:38)
Unknown
Sulfa (Sulfonamide Antibiotics) Allergy (Verified 10/30/23 18:38)
Unknown
Medications Reviewed: Yes
Current Antibiotics:
Vancomycin
Social History
Tobacco: Non-Smoker
Alcohol: None
Drug: None
Living: Fpc
Employment: Not Employed
Family History
Family History: Unable to Obtain
Review of Systems
Vital Signs
Temp Pulse Resp BP Pulse Ox
98.1 F 78 16 121/51 95
10/31/23 11:57 10/31/23 13:28 10/31/23 13:28 10/31/23 11:57 10/31/23 13:28
Physical Exam
Physical Exam
Constitutional: Comfortable, Chronically Ill, Non-toxic and Cachetic
Eyes: Pupils Equal, Pupils Round, No Conjunctival Hemorrhage and Sclera Anicteric
Oral: No Thrush and No Ulcers
Cardiovascular: S1/S2 and Murmur; Negative S3/S4
Pulmonary: Non Labored; Negative Wheezes, Rales or Rhonchi
Gastrointestinal: Soft, Non Tender, Non Distended, Normal Bowel Sounds, No Rebound and No Guarding
Musculoskeletal: Other (Right knee with effusion, but without significant erythema. Small punctate wound without drainage on the anterior aspect of the knee.)
Skin: Warm and Dry; Negative Rash or Jaundice
Neurological: Awake and Alert
Psychological: Calm
Lab / Diagnostic Study Results
10/31/23 07:59
10/31/23 07:59
Abs Immat Gran (auto) 0.0 10^3/uL (0-0.05) 10/30/23 18:53
Absolute Neuts (auto) 4.9 10^3/uL (1.4-6.5) 10/30/23 18:53
Absolute Lymphs (auto) 1.1 10^3/uL (1.2-3.4) L 10/30/23 18:53
Absolute Monos (auto) 0.7 10^3/uL (0.1-0.6) H 10/30/23 18:53
Absolute Basos (auto) 0.1 10^3/uL (0-0.2) 10/30/23 18:53
Immature Gran % 0.3 % (0-0.5) 10/30/23 18:53
Neutrophils % 71.3 % (42.2-75.2) 10/30/23 18:53
Lymphocytes % 15.3 % (20.5-51.1) L 10/30/23 18:53
Monocytes % 10.7 % (1.7-9.3) H 10/30/23 18:53
Eosinophils % 1.7 % (0-6) 10/30/23 18:53
Basophils % 0.7 % (0-2) 10/30/23 18:53
ESR 126 mm/hour (0-20) H 10/30/23 18:53
Lactic Acid Cancelled 10/30/23 22:45
C-Reactive Protein 63.00 mg/L (0.0-10.00) H 10/30/23 18:53
Microbiology Results
Micro:
10/30/23 19:00 Wound Culture - Preliminary
Knee - Right No growth
Gram Stain - Preliminary
10/31/23 00:26 MRSA Screen - Pending
Nose
10/30/23 18:53 Blood Culture - Pending
Blood/Venous
10/30/23 18:53 Blood Culture - Pending
Blood/Venous
Assessment / Plan
Right knee discomfort
Elevated ESR and CRP
Transaminitis
Atrial fibrillation
Congenital absence of left hand
Dyslipidemia
Protein calorie malnutrition
PVD
Dementia
Depression
Osteoporosis
Hearing loss
Recommendations:
At present, little evidence of right knee cellulitis, although elevated inflammatory markers, knee pain and effusion raises the possibility of deeper infection.
Will discontinue further antibiotics in anticipation of further workup.
Would recommend aspiration of the knee. The patient has been on recent antibiotics and thus aspiration may need to be deferred, or repeated several times in order to maximize possibility of organism recovery.
Will continue to follow along with you.
Care Review
Plan reviewed with: Physician (Hospitalist)
--- NOTE | 2023-10-31 15:32 | W.PN.UPDATE ---
Update Note
Progress Note Update
Consent was obtained by the daughter to proceed with right knee aspiration and discussion with attending.
Nonvascular ultrasound the right knee shows large amount of synovitis intra-articular with fluid present.
A superior lateral approach was utilized. Alcohol x 2 was applied followed by Betadine and allowed to sit for 2 minutes. X 2 alcohol was applied over the site again. Approximately 20 cc of cloudy bloody fluid was aspirated. The needle was
maintained and the syringe was disengaged and a syringe containing 5 mL of 1% lidocaine without epinephrine and 5 mL of 0.25 bupivacaine without epinephrine was then attached and injected intra-articular. A compressive wrap was then applied.
Patient tolerated procedure well.
-Labs ordered for cell count, aerobic and anaerobic cultures, and crystal analysis
[2023-10-31 16:42] LABS: Body Fluid Mononuclear 4.8 %; Body Fluid Polymorphonuclear 95.2 %; Body Fluid WBC 206200 /CUMM
[2023-10-31 16:50] LABS: Body Fluid Second Tech EYM
[2023-10-31] MEDS: FLORASTOR 250 MG PO (17:40)
[2023-10-31] MEDS: ZYRTEC 10 MG PO (17:40)
[2023-10-31] MEDS: CRESTOR 40 MG PO (17:41)
[2023-10-31] MEDS: LOVENOX 40 MG SC (17:41)
[2023-10-31] MEDS: DESYREL 50 MG PO (21:39)
[2023-11-01] VITALS (8 sets, daily range): BP systolic 111–157; BP diastolic 47–78
[2023-11-01] MEDS: VENTOLIN NEBULES 2.5 MG INH ×3 (07:49→20:02)
[2023-11-01 08:39] LABS: % Eosinophils 0.7 % (0-6); % Immature Granulocytes 0.5 % (0-0.5); % Lymphocytes 13.5 % (20.5-51.1); % Neutrophils 73.3 % (42.2-75.2); Absolute Basophils 0.1 10^3/uL (0-0.2); Absolute Eosinophils 0.1 10^3/uL (0-0.7); Absolute Monocytes 0.8 10^3/uL (0.1-0.6); Absolute Neutrophils 5.4 10^3/uL (1.4-6.5); Hematocrit 29.4 % (37.0-47.0); Hemoglobin 9.7 g/dL (12.0-16.0); Mean Corpuscular Hgb 28.3 pg (27.0-31.0); Mean Corpuscular Volume 85.7 fL (81.0-99.0); Mean Platelet Volume 9.4 fL (7.4-10.4); Nucleated Red Blood Cells % 0 %; Platelet Count 385 10^3/uL (130-400); Red Blood Cell Count 3.43 10^6/uL (4.20-5.40); Red Cell Dist. Width 13.3 % (11.5-14.5); White Blood Cell Count 7.4 10^3/uL (4.8-10.8)
[2023-11-01] MEDS: TYLENOL 1000 MG PO ×2 (08:41→21:16)
[2023-11-01] MEDS: PLAVIX 75 MG PO (08:41)
[2023-11-01] MEDS: BETAPACE 40 MG PO ×2 (08:41→17:25)
[2023-11-01] MEDS: ZETIA 10 MG PO (08:41)
[2023-11-01] MEDS: PROTONIX 20 MG PO (08:41)
[2023-11-01 09:19] LABS: ALT (SGPT) 34 U/L (0-35); AST (SGOT) 31 U/L (14-36); Albumin 3.1 g/dl (3.5-5.0); Alkaline Phosphatase 95 U/L (38-126); Blood Urea Nitrogen 22 mg/dl (7-17); Calcium 9.1 mg/dl (8.4-10.2); Carbon Dioxide 33 mmol/L (22-30); Chloride 94 mmol/L (98-107); Estimated Creatinine Clearance 41 ml/min; Glucose 108 mg/dl (70-99); Potassium 3.6 mmol/L (3.5-5.1); Sodium 134 mmol/L (135-145); Total Bilirubin 0.8 mg/dl (0.2-1.3); Total Protein 6.2 g/dl (6.3-8.2); eGFR > 60.00
--- NOTE | 2023-11-01 09:45 | W.PN.UPDATE ---
Update Note
Progress Note Update
Orthopedic surgery update note:
Patient's right knee aspirate resulted with a white blood cell count of [id number] which is indicative for a periprosthetic knee infection. Her vitals are currently stable, white blood cells within normal limits. However, her ESR and CRP are elevated.
She may require a revision right total knee arthroplasty. Therefore, we recommend transfer to her original surgeon Dr. Neymar Turner or alternatively to a tertiary care center. Continue to monitor vitals. Appreciate ID input. Please call with
questions.
--- NOTE | 2023-11-01 10:15 | CM ---
manager ethics reviewed patient's chart and met with patient and patient with dementia, case hardener reached out to [facility] and spoke with patient's nurse, patient resides at [facility], patient requires assist of 2 sit to
stand lift to w/c, per nursing they sometimes use a Gia life.
PCP: Dr Rios Augustin
Plan; Patient to return to [facility] when stable.
--- NOTE | 2023-11-01 11:42 | W.PN.HOSP.TC ---
Today's Communication/Plan
-
Monitor vital signs and see plan
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
Spoke with ortho. Our orthopedics is trying to reach with patient outpatient orthopedic surgeon and trying to see if patient can be transferred for possible right knee revision
Daughter updated over the phone
Assessment / Plan
Assessment / Plan
General: Well Developed, Well Nourished and No Apparent Distress
HEENT: NormoCephalic, Moist mucous membranes and Atraumatic
Respiratory: Clear
Cardiac: S1/S2 and Regular Rhythm; No Murmur or Rub
GI: Soft, Non Tender, Non Distended and Normal Bowel Sounds; No Organomegaly
Musculoskeletal: No Clubbing, No Cyanosis and Other (right knee, LE swelling )
Neuro: Nonfocal/grossly intact
Psych: Calm
Right right knee pain/bilateral lower extremity swelling likely from periprosthetic right knee infection
-Sed rate 126, CRP 63.00
-No sonographic evidence for lower extremity thrombosis
-Right knee x-ray with impression of No acute fracture or dislocation. Stable arthroplasty hardware and patellar fragmentation. Moderate to large knee joint effusion.
-Wound culture sent from ER; not sure why no other studies sent
Last admission no culture was sent and patient was discharged eventually on p.o. antibiotics.
-Blood culture NGTD
abx held for knee arthrocentesis
Status post right knee aspiration 10/30. WBC count [id number] which is indicative for periprosthetic infection. No leukocytosis. Patient will require revision right knee arthroplasty. Our orthopedics will speak to original surgeon Dr. Neymar Turner
group and patient will likely need to be transferred.
-orthopedics following
ID following
Follow fever curve
# Anemia of chronic disease
-Hemoglobin 9.7
-ctm
LE edema
Venous Doppler negative for DVT
proBNP elevated, got couple intermittent IV lasix; monitor clinically
Check echo
Mild hypokalemia
Replete
# Chronic hyponatremia
-fluid restriction
# LFT elevation
-ctm
-no c/of abdominal pain
#hyperthyroidism
-methimazole continued
#GERD
-PPI continued
#paroxysmal atrial fib
-sotalol continued
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
#Hyperlipidemia -on Crestor,zetia
#essential hypertension -stable.
#Osteoporosis -on weekly Fosamax
#DNR
I spent a total of 53 minutes with the patient or on the floor. More than 50% of this time involved counseling and coordination of care.
Anticipated Discharge: > 48 hours
Subjective/Interval History
-
Date of Service: November 01, 2023
still has right swollen knee
Objective Data
-
Labs:
Laboratory Results
11/01/23 11/01/23
08:03 08:04
WBC 7.4
Hgb 9.7 L
Hct 29.4 L
Plt Count 385
Sodium 134 L
Potassium 3.6
Chloride 94 L
Carbon Dioxide 33 H
BUN 22 H
Creatinine 0.7
Glucose 108 H
Calcium 9.1
Total Bilirubin 0.8
AST 31
ALT 34
Alkaline Phosphatase 95
Vital Signs:
Vital Signs
Temp Pulse Resp BP Pulse Ox
97.7 F 72 16 157/78 93
11/01/23 04:00 11/01/23 07:52 11/01/23 07:52 11/01/23 04:00 11/01/23 07:52
I&O
10/31/23 11/01/23 11/02/23
06:59 06:59 06:59
Intake Total 240 / 240
Balance 240 / 240
[2023-11-01] MEDS: LOVENOX 40 MG SC (17:24)
[2023-11-01] MEDS: ZYRTEC 10 MG PO (17:25)
[2023-11-01] MEDS: FLORASTOR 250 MG PO (17:25)
[2023-11-01] MEDS: CRESTOR 40 MG PO (17:25)
[2023-11-01] MEDS: DESYREL 50 MG PO (21:16)
[2023-11-02 03:00] VITALS: BP 133/64
[2023-11-02 06:00] VITALS: BMI 23.3
[2023-11-02 07:25] VITALS: BP 164/80
[2023-11-02] MEDS: VENTOLIN NEBULES 2.5 MG INH ×2 (07:31→13:31)
--- NOTE | 2023-11-02 08:55 | CM ---
Per daughter patient uses a mechanical/Vanesa lift not Gia at nursing facility.
[2023-11-02 09:12] LABS: % Basophils 0.7 % (0-2); % Eosinophils 0.9 % (0-6); % Immature Granulocytes 0.4 % (0-0.5); % Lymphocytes 13.5 % (20.5-51.1); % Neutrophils 74.5 % (42.2-75.2); Absolute Basophils 0.1 10^3/uL (0-0.2); Absolute Eosinophils 0.1 10^3/uL (0-0.7); Absolute Monocytes 0.8 10^3/uL (0.1-0.6); Absolute Neutrophils 5.6 10^3/uL (1.4-6.5); Hematocrit 29.1 % (37.0-47.0); Hemoglobin 9.3 g/dL (12.0-16.0); Mean Corpuscular Volume 87.7 fL (81.0-99.0); Mean Platelet Volume 9.5 fL (7.4-10.4); Nucleated Red Blood Cells % 0 %; Platelet Count 358 10^3/uL (130-400); Red Blood Cell Count 3.32 10^6/uL (4.20-5.40); Red Cell Dist. Width 13.2 % (11.5-14.5); White Blood Cell Count 7.5 10^3/uL (4.8-10.8)
[2023-11-02 09:35] LABS: ALT (SGPT) 29 U/L (0-35); AST (SGOT) 34 U/L (14-36); Albumin 2.8 g/dl (3.5-5.0); Alkaline Phosphatase 88 U/L (38-126); Blood Urea Nitrogen 15 mg/dl (7-17); Calcium 8.6 mg/dl (8.4-10.2); Carbon Dioxide 28 mmol/L (22-30); Chloride 98 mmol/L (98-107); Estimated Creatinine Clearance 47 ml/min; Glucose 103 mg/dl (70-99); Potassium 3.5 mmol/L (3.5-5.1); Sodium 132 mmol/L (135-145); Total Bilirubin 0.7 mg/dl (0.2-1.3); Total Protein 5.7 g/dl (6.3-8.2); eGFR > 60.00
[2023-11-02] MEDS: TYLENOL 1000 MG PO (10:32)
[2023-11-02] MEDS: BETAPACE 40 MG PO (10:33)
[2023-11-02] MEDS: TAPAZOLE 5 MG PO (10:33)
[2023-11-02] MEDS: PLAVIX 75 MG PO (10:33)
[2023-11-02] MEDS: PROTONIX 20 MG PO (10:33)
[2023-11-02] MEDS: ZETIA 10 MG PO (10:33)
[2023-11-02] MEDS: ZOLOFT 12.5 MG PO (10:36)
--- NOTE | 2023-11-02 10:58 | W.DCSUMMARY ---
Discharge Summary
Discharge Data
Date of Admission: 10/30/23
Date of Discharge: 11/02/23
-
Pending Results: Yes
Hospital Course
88-year-old female with past medical history of anemia of chronic disease, hyponatremia, hypothyroidism, GERD, paroxysmal atrial fibrillation, dementia, hyperlipidemia, essential hypertension, osteoporosis came to the hospital with right knee
swelling and pain concerning for periprosthetic right knee infection. Patient had elevated ESR and CRP on admission. Patient was seen by orthopedics and got right knee arthrocentesis which showed elevated WBC count which was indicated for
periprosthetic infection. Patient was also been followed by infectious disease. Given patient infection, orthopedics here spoke with patient original surgeon was at [place] Dr. Neymar Turner who accepted the patient to be transferred to
[facility] for further management. Patient culture and echocardiogram was still pending prior to the discharge. Patient instructed to follow-up at [facility] for further management.
Discharge Plan
-
Patient Disposition: Other
Discharge Diagnosis/Procedures: Right right knee pain/bilateral lower extremity swelling likely from periprosthetic right knee infection
Anemia of chronic disease
Lower extremity edema
Diet: As tolerated
Activity: As tolerated
Driving Restrictions: Not until seen by your Dr
Bathing Restrictions: None
Activity Restrictions/Additional Instructions:
Please follow-up with your physician at [facility]
Referrals:
Rios Augustin DO [Family Provider] - in less than 1 week
Prescriptions:
Continued
trazodone 50 mg Tablet
50 mg PO HS
sotalol 80 mg Tablet
40 mg PO BID@0830,1830
alendronate [Fosamax] 70 mg Tablet
70 mg PO HANLEY
clopidogrel [Plavix] 75 mg Tablet
75 mg PO DAILY
acetaminophen [Tylenol Extra Strength] 500 mg Tablet
1,000 mg PO BID
pantoprazole [Protonix] 20 mg Tablet,Delayed Release (Dr/Ec)
20 mg PO DAILY
methimazole 5 mg Tablet
5 mg PO MOWEFR@0800
sertraline 25 mg Tablet
12.5 mg PO MOWEFR@0830
ezetimibe [Zetia] 10 mg Tablet
10 mg PO DAILY
rosuvastatin [Crestor] 40 mg Tablet
40 mg PO QPM
Saccharomyces boulardii [Florastor] 250 mg Capsule
250 mg PO QPM
cholecalciferol (vitamin D3) 1,250 mcg (50,000 unit) Tablet
1,250 mcg PO QMONTH
Rx Instructions:
the Thursday of each month
cetirizine [Zyrtec] 10 mg Tablet
10 mg PO QPM
Coricidin HBP Cough and Cold 4-30 mg Tablet
1 tab PO Q6HPRN PRN (Reason: cough)
magnesium hydroxide [Milk of Magnesia] 400 mg/5 mL Suspension
2,400 mg PO HSPRN PRN (Reason: constipation)
bisacodyl [Dulcolax (bisacodyl)] 10 mg Suppository
10 mg [place] DAILYPRN PRN (Reason: if no bm aftr mom)
Debrox 6.5 % Drops
4 drp EACH EAR BIDPRN PRN (Reason: cerumen)
eucalyptus-menthol Lozenge
3.1 mg MUCOUS MEMBRANE Q6HPRN PRN (Reason: cough)
lidocaine 4 % Adhesive Patch,Medicated
1 patch TOPICAL DAILYPRN PRN (Reason: b/l knee)
azelastine 137 mcg (0.1 %) Aerosol,[place]
1 spray INTRANASAL DAILYPRN PRN (Reason: allergies)
alprazolam [Xanax] 0.25 mg Tablet
0.25 mg PO BIDPRN PRN (Reason: if cant sleep after 0200am) Qty: 10 0RF
albuterol sulfate 2.5 mg /3 mL (0.083 %) solution for nebulization
2.5 mg inhalation R TID@0830,1330,1830
hydrocodone-acetaminophen 5-325 mg Tablet
1 tab PO Q8H PRN (Reason: moderate pain)
guaifenesin 100 mg/5 mL Liquid
200 mg PO Q6H PRN (Reason: cough)
Held
clindamycin HCl 300 mg Capsule
300 mg PO DAILYPRN PRN (Reason: dental procedure)
Hold Instructions: Until instructed by physician
Patient Comments:
10/30/2023: give one hour prior to dental procedure
Discharge Orders:
Discharge Patient (As Directed); Ordered 11/02/23
Ordered By: Yahir Alonso
Discharge Date and Time
Discharge Date/Time: 11/02/23 19:20
Print Language: DIVEHI
--- NOTE | 2023-11-02 11:16 | W.PN.HOSP.TC ---
Addendum entered and electronically signed by Yahir Alonso MD 11/02/23 13:07:
Transfer form signed and in chart.
Time of discharge 38 minutes
Original Note:
Today's Communication/Plan
-
Monitor vital signs and see plan
Transfer to [place] under Dr. Neymar Turner
Assessment / Plan
Assessment / Plan
General: Well Developed, Well Nourished and No Apparent Distress
HEENT: NormoCephalic, Moist mucous membranes and Atraumatic
Respiratory: Clear
Cardiac: S1/S2 and Regular Rhythm; No Murmur or Rub
GI: Soft, Non Tender, Non Distended and Normal Bowel Sounds; No Organomegaly
Musculoskeletal: No Clubbing, No Cyanosis and Other (right knee, LE swelling )
Neuro: Nonfocal/grossly intact
Psych: Calm
Right right knee pain/bilateral lower extremity swelling likely from periprosthetic right knee infection
-Sed rate 126, CRP 63.00
-No sonographic evidence for lower extremity thrombosis
-Right knee x-ray with impression of No acute fracture or dislocation. Stable arthroplasty hardware and patellar fragmentation. Moderate to large knee joint effusion.
-Wound culture sent from ER; not sure why no other studies sent
Last admission no culture was sent and patient was discharged eventually on p.o. antibiotics.
-Blood culture NGTD
abx held for knee arthrocentesis
Status post right knee aspiration 10/30. WBC count 019653 which is indicative for periprosthetic infection. No leukocytosis. Patient will require revision right knee arthroplasty. Dr Mondragon spoke with original surgeon Dr. Neymar Turner at
[facility] and he accepted patient to be transferred. This was discussed with patient and daughter. I did call the transfer center and they think bed will be available today.
-orthopedics following
ID following; did spoke
Follow fever curve
# Anemia of chronic disease
-Hemoglobin 9.3
-ctm
LE edema
Venous Doppler negative for DVT
proBNP elevated, got couple intermittent IV lasix; monitor clinically
Check echo
Mild hypokalemia
Replete
# Chronic hyponatremia
-fluid restriction
# LFT elevation
-ctm
-no c/of abdominal pain
#hyperthyroidism
-methimazole continued
#GERD
-PPI continued
#paroxysmal atrial fib
-sotalol continued
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
#Hyperlipidemia -on Crestor,zetia
#essential hypertension -stable.
#Osteoporosis -on weekly Fosamax
#DNR
Anticipated Discharge: Today
Subjective/Interval History
-
Date of Service: November 02, 2023
Denies pain
Objective Data
-
Labs:
Laboratory Results
11/02/23
08:29
WBC 7.5
Hgb 9.3 L
Hct 29.1 L
Plt Count 358
Sodium 132 L
Potassium 3.5
Chloride 98
Carbon Dioxide 28
BUN 15
Creatinine 0.6
Glucose 103 H
Calcium 8.6
Total Bilirubin 0.7
AST 34
ALT 29
Alkaline Phosphatase 88
Vital Signs:
Vital Signs
Temp Pulse Resp BP Pulse Ox
99.8 F 75 14 164/80 93
11/02/23 07:25 11/02/23 07:34 11/02/23 07:34 11/02/23 07:25 11/02/23 07:34
I&O
11/01/23 11/02/23 11/03/23
06:59 06:59 06:59
Intake Total 1050 / 1050
Balance 1050 / 1050
[2023-11-02 11:35] VITALS: BP 127/55
--- NOTE | 2023-11-02 11:47 | CM ---
Addendum entered by Tamara Scruggs 11/02/23 15:29:
Patients daughter, Janelle, requesting a call when time is determined for transport [phone].
Original Note:
CM reviewed chart, patient for transfer to [place] when bed available. CM will continue to follow for discharge planning needs.
Plan; transfer to [place] when bed available.
--- NOTE | 2023-11-02 12:34 | W.PN.UPDATE ---
Update Note
Progress Note Update
Late entry from morning rounds. Patient was quite confused this morning. I had to repeat myself numerous times and she still did not seem to understand. Right knee is dressed with an Vamsi bandage for compression. Aspirate still with negative
growth to date. However cell count 200K+, which would be indicative of likely PJI. Low-grade 99 this morning. WBC WNL. ESR and CRP are elevated. Her attending orthopedist, Dr. Neymar Turner, is still practicing approximately 45 minutes away.
would recommend a transfer back to him or alternatively a tertiary care center. will continue treatment per the primary team, including IV ABX per ID. Appreciate everyone's efforts
--- NOTE | 2023-11-02 14:06 | W.PN.ID1 ---
Date of Service
Date of Service: November 02, 2023
Today's Communication
Observe off antibiotics for now. Await possible transfer to [facility]
Assessment / Plan
Right knee discomfort
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
Elevated ESR and CRP
Transaminitis
Atrial fibrillation
Congenital absence of left hand
Dyslipidemia
Protein calorie malnutrition
PVD
Dementia
Depression
Osteoporosis
Hearing loss
Recommendations:
Observe off antibiotics for now. Will follow closely to assess for need for reinitiation.
Patient for transfer to [facility] where her original Orthopedic Physician practices.
Would like to keep patient off antibiotics as long as possible so as to potentially increase yield on culture.
����������������������������������������������������������
Chief Complaint
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
Subjective / Review of Systems
Review of Systems: No Fever
Vital Signs / Physical Exam
Vital Signs
Vital Signs
Temp Pulse Resp BP Pulse Ox
98.3 F 73 16 127/55 94
11/02/23 11:35 11/02/23 13:34 11/02/23 13:34 11/02/23 11:35 11/02/23 13:34
Physical Exam
Constitutional: No Acute Distress, Comfortable, Chronically Ill and Non-toxic
Eyes: Sclera Anicteric
Pulmonary: Non Labored
Gastrointestinal: Soft and Non Distended
Extremities: Edema (1+), Cyanosis and Erythema (minimal)
Musculoskeletal: Joint Swelling (right knee.)
Skin: Warm and Dry; Negative Rash or Jaundice
Neurological: Awake and Alert
Psychological: Calm
Objective Data
Lab Data
Lab Results
11/02/23 08:29
11/02/23 08:29
ESR 126 mm/hour (0-20) H 03/29/24 18:53
Estimated Creat Clear 47 ml/min 11/02/23 08:29
Lactic Acid Cancelled 10/30/23 22:45
Total Bilirubin 0.7 mg/dl (0.2-1.3) 11/02/23 08:29
AST 34 U/L (14-36) 11/02/23 08:29
ALT 29 U/L (0-35) 11/02/23 08:29
Alkaline Phosphatase 88 U/L (38-126) 11/02/23 08:29
C-Reactive Protein 63.00 mg/L (0.0-10.00) H 10/30/23 18:53
Most recent labs reviewed.
Micro Results:
10/31/23 15:30 Anaerobic Culture - Preliminary
Knee - Right Culture pending. Anaerobic cultures are examined after 3
days incubation. Additional information to follow.
10/31/23 15:30 Body Fluid Culture - Preliminary
Knee - Right No Growth After 18-24 Hours
Gram Stain - Preliminary
10/30/23 18:53 Blood Culture - Preliminary
Blood/Venous No Growth in 48 hours- Final report to follow
10/30/23 18:53 Blood Culture - Preliminary
Blood/Venous No Growth in 48 hours- Final report to follow
10/30/23 19:00 Wound Culture - Final
Knee - Right No growth
Gram Stain - Final
10/31/23 00:26 MRSA Screen - Final
Nose No Methicillin Resistant Staphylococcus aureus isolated.
[2023-11-02 15:20] VITALS: BP 126/57
[2023-11-02 16:06] VITALS: BP 126/57
--- NOTE | 2023-11-02 18:31 | PTCARENOTE ---
Pt TXFR To [facility] Room 408. Transport by [facility] @ 2619. Report called to DARCY Pressley @ [place] # [phone].
== END 2023-11-02 19:20 | disposition other institution (70) | DRG 560 ==
LOC: 4 WEST ACU 22:33
PROVIDERS: Clinical Nurse Specialist Family Health; Physician Assistant Surgical; Registered Nurse; ADMITTING PHYSICIAN Hospitalist; ATTENDING PHYSICIAN Internal Medicine; CONSULT PHYSICIAN Internal Medicine Infectious Disease; CONSULT PHYSICIAN Orthopaedic Surgery; EMERGENCY PHYSICIAN Emergency Medicine; FAMILY PHYSICIAN Student in an Organized Health Care Education/Training Program
DX: T84.53XA Infection and inflammatory reaction due to internal right knee prosthesis, initial encounter (principal); E46 Unspecified protein-calorie malnutrition; E87.1 Hypo-osmolality and hyponatremia; F02.83 Dementia in other diseases classified elsewhere, unspecified severity, with mood disturbance; F02.84 Dementia in other diseases classified elsewhere, unspecified severity, with anxiety; Z66 Do not resuscitate; M70.51 Other bursitis of knee, right knee; D63.8 Anemia in other chronic diseases classified elsewhere; E05.90 Thyrotoxicosis, unspecified without thyrotoxic crisis or storm; K21.9 Gastro-esophageal reflux disease without esophagitis; I48.0 Paroxysmal atrial fibrillation; I10 Essential (primary) hypertension; F32.9 Major depressive disorder, single episode, unspecified; G30.9 Alzheimer's disease, unspecified; M81.0 Age-related osteoporosis without current pathological fracture; E78.00 Pure hypercholesterolemia, unspecified; Y83.1 Surgical operation with implant of artificial internal device as the cause of abnormal reaction of the patient, or of later complication, without mention of misadventure at the time of the procedure; Z68.23 Body mass index [BMI] 23.0-23.9, adult
CPT/HCPCS: 36415; 71046; 73564; 80048; 80053; 82248; 83605; 83735; 83880; 84484; 85025; 85027; 85652; 86140; 87015; 87040; 87070; 87075; 87205; 89051; 89060; 92610; 93306; 93970; 94640; 96365; 96366; 97162; 99285

== ENCOUNTER → 2023-12-21 10:00 | Outpatient (REF) | payer OTHER, MEDICARE, SELFPAY ==
[2023-12-21 10:55] LABS: % Basophils 1.7 % (0-2); % Eosinophils 5.8 % (0-6); % Immature Granulocytes 0.2 % (0-0.5); % Lymphocytes 24.4 % (20.5-51.1); % Monocytes 11.6 % (1.7-9.3); % Neutrophils 56.3 % (42.2-75.2); Absolute Basophils 0.1 10^3/uL (0-0.2); Absolute Eosinophils 0.2 10^3/uL (0-0.7); Absolute Monocytes 0.5 10^3/uL (0.1-0.6); Absolute Neutrophils 2.3 10^3/uL (1.4-6.5); Hematocrit 28.6 % (37.0-47.0); Hemoglobin 9.2 g/dL (12.0-16.0); Mean Corp Hgb Conc. 32.2 g/dL (33.0-37.0); Mean Corpuscular Hgb 28.6 pg (27.0-31.0); Mean Corpuscular Volume 88.8 fL (81.0-99.0); Mean Platelet Volume 9.7 fL (7.4-10.4); Nucleated Red Blood Cells % 0 %; Platelet Count 268 10^3/uL (130-400); Red Blood Cell Count 3.22 10^6/uL (4.20-5.40); Red Cell Dist. Width 16.6 % (11.5-14.5); White Blood Cell Count 4.1 10^3/uL (4.8-10.8)
[2023-12-21 11:30] LABS: Albumin 2.7 g/dl (3.5-5.0); Blood Urea Nitrogen 10 mg/dl (7-17); Calcium 8.9 mg/dl (8.4-10.2); Carbon Dioxide 28 mmol/L (22-30); Chloride 104 mmol/L (98-107); Glucose 85 mg/dl (70-99); Phosphorus 3.9 mg/dl (2.5-4.5); Potassium 4.1 mmol/L (3.5-5.1); Sodium 136 mmol/L (135-145); eGFR > 60.00
[2023-12-21 11:31] LABS: Erythrocyte Sed Rate 50 mm/hour (0-20)
== END ==
LOC: OLABN 10:00
PROVIDERS: ATTENDING PHYSICIAN Student in an Organized Health Care Education/Training Program
DX: M81.0 Age-related osteoporosis without current pathological fracture (principal); E78.00 Pure hypercholesterolemia, unspecified; E05.90 Thyrotoxicosis, unspecified without thyrotoxic crisis or storm
CPT/HCPCS: 36415; 80069; 85025; 85652

== ENCOUNTER → 2024-02-15 10:11 | Outpatient (REF) | payer MEDICARE, OTHER, SELFPAY ==
[2024-02-15 13:53] LABS: % Basophils 1.1 % (0-2); % Eosinophils 4.4 % (0-6); % Immature Granulocytes 0.2 % (0-0.5); % Lymphocytes 20.5 % (20.5-51.1); % Monocytes 11.9 % (1.7-9.3); % Neutrophils 61.9 % (42.2-75.2); Absolute Basophils 0.1 10^3/uL (0-0.2); Absolute Eosinophils 0.3 10^3/uL (0-0.7); Absolute Lymphocytes 1.2 10^3/uL (1.2-3.4); Absolute Monocytes 0.7 10^3/uL (0.1-0.6); Absolute Neutrophils 3.5 10^3/uL (1.4-6.5); Hematocrit 31.3 % (37.0-47.0); Hemoglobin 10.5 g/dL (12.0-16.0); Mean Corp Hgb Conc. 33.5 g/dL (33.0-37.0); Mean Corpuscular Hgb 28.6 pg (27.0-31.0); Mean Corpuscular Volume 85.3 fL (81.0-99.0); Mean Platelet Volume 9.8 fL (7.4-10.4); Nucleated Red Blood Cells % 0 %; Platelet Count 253 10^3/uL (130-400); Red Blood Cell Count 3.67 10^6/uL (4.20-5.40); Red Cell Dist. Width 13.5 % (11.5-14.5); White Blood Cell Count 5.6 10^3/uL (4.8-10.8)
[2024-02-15 14:05] LABS: Erythrocyte Sed Rate 48 mm/hour (0-20)
[2024-02-15 14:40] LABS: Albumin 3.4 g/dl (3.5-5.0); Blood Urea Nitrogen 24 mg/dl (7-17); Calcium 9.4 mg/dl (8.4-10.2); Carbon Dioxide 31 mmol/L (22-30); Chloride 96 mmol/L (98-107); Glucose 79 mg/dl (70-99); Phosphorus 3.7 mg/dl (2.5-4.5); Sodium 135 mmol/L (135-145); eGFR > 60.00
== END ==
LOC: OLABN 10:11
PROVIDERS: ATTENDING PHYSICIAN Student in an Organized Health Care Education/Training Program
DX: M18.0 Bilateral primary osteoarthritis of first carpometacarpal joints (principal); E05.90 Thyrotoxicosis, unspecified without thyrotoxic crisis or storm; E78.00 Pure hypercholesterolemia, unspecified
CPT/HCPCS: 80069; 85025; 85652

== ENCOUNTER → 2024-02-19 09:21 | Outpatient (REF) | payer MEDICARE, OTHER, SELFPAY ==
[2024-02-19 13:01] LABS: Blood Urea Nitrogen 18 mg/dl (7-17); Calcium 9.5 mg/dl (8.4-10.2); Carbon Dioxide 29 mmol/L (22-30); Chloride 98 mmol/L (98-107); Glucose 87 mg/dl (70-99); Potassium 3.8 mmol/L (3.5-5.1); Sodium 136 mmol/L (135-145); eGFR > 60.00
== END ==
LOC: OLABN 09:21
PROVIDERS: ATTENDING PHYSICIAN Student in an Organized Health Care Education/Training Program
DX: E88.9 Metabolic disorder, unspecified (principal)
CPT/HCPCS: 80048

== ENCOUNTER → 2024-02-22 10:08 | Outpatient (REF) | payer MEDICARE, OTHER, SELFPAY ==
[2024-02-22 12:09] LABS: % Basophils 1.2 % (0-2); % Eosinophils 6.3 % (0-6); % Immature Granulocytes 0.3 % (0-0.5); % Lymphocytes 18.6 % (20.5-51.1); % Monocytes 9.4 % (1.7-9.3); % Neutrophils 64.2 % (42.2-75.2); Absolute Basophils 0.1 10^3/uL (0-0.2); Absolute Eosinophils 0.4 10^3/uL (0-0.7); Absolute Lymphocytes 1.1 10^3/uL (1.2-3.4); Absolute Monocytes 0.5 10^3/uL (0.1-0.6); Absolute Neutrophils 3.7 10^3/uL (1.4-6.5); Hematocrit 33.5 % (37.0-47.0); Hemoglobin 11.2 g/dL (12.0-16.0); Mean Corp Hgb Conc. 33.4 g/dL (33.0-37.0); Mean Corpuscular Hgb 28.2 pg (27.0-31.0); Mean Corpuscular Volume 84.4 fL (81.0-99.0); Mean Platelet Volume 10.6 fL (7.4-10.4); Nucleated Red Blood Cells % 0 %; Platelet Count 277 10^3/uL (130-400); Red Blood Cell Count 3.97 10^6/uL (4.20-5.40); Red Cell Dist. Width 13.3 % (11.5-14.5); White Blood Cell Count 5.8 10^3/uL (4.8-10.8)
[2024-02-22 12:21] LABS: Albumin 3.7 g/dl (3.5-5.0); Blood Urea Nitrogen 20 mg/dl (7-17); Calcium 9.7 mg/dl (8.4-10.2); Carbon Dioxide 30 mmol/L (22-30); Chloride 97 mmol/L (98-107); Glucose 83 mg/dl (70-99); Phosphorus 4.1 mg/dl (2.5-4.5); Potassium 3.6 mmol/L (3.5-5.1); Sodium 135 mmol/L (135-145); eGFR > 60.00
[2024-02-22 13:47] LABS: Erythrocyte Sed Rate 28 mm/hour (0-20)
== END ==
LOC: OLABN 10:08
PROVIDERS: ATTENDING PHYSICIAN Student in an Organized Health Care Education/Training Program
DX: M81.0 Age-related osteoporosis without current pathological fracture (principal); E78.00 Pure hypercholesterolemia, unspecified; E05.90 Thyrotoxicosis, unspecified without thyrotoxic crisis or storm
CPT/HCPCS: 36415; 80069; 85025; 85652

== ENCOUNTER → 2024-02-29 12:43 | Outpatient (REF) | payer MEDICARE, OTHER, SELFPAY ==
[2024-02-29 13:44] LABS: % Basophils 0.9 % (0-2); % Eosinophils 4.3 % (0-6); % Immature Granulocytes 0.3 % (0-0.5); % Lymphocytes 16.1 % (20.5-51.1); % Monocytes 9.4 % (1.7-9.3); Absolute Basophils 0.1 10^3/uL (0-0.2); Absolute Eosinophils 0.3 10^3/uL (0-0.7); Absolute Monocytes 0.6 10^3/uL (0.1-0.6); Absolute Neutrophils 4.5 10^3/uL (1.4-6.5); Hematocrit 31.7 % (37.0-47.0); Hemoglobin 10.7 g/dL (12.0-16.0); Mean Corp Hgb Conc. 33.8 g/dL (33.0-37.0); Mean Corpuscular Hgb 28.6 pg (27.0-31.0); Mean Corpuscular Volume 84.8 fL (81.0-99.0); Mean Platelet Volume 9.8 fL (7.4-10.4); Nucleated Red Blood Cells % 0 %; Platelet Count 215 10^3/uL (130-400); Red Blood Cell Count 3.74 10^6/uL (4.20-5.40); Red Cell Dist. Width 13.4 % (11.5-14.5); White Blood Cell Count 6.5 10^3/uL (4.8-10.8)
[2024-02-29 14:10] LABS: Albumin 3.6 g/dl (3.5-5.0); Blood Urea Nitrogen 19 mg/dl (7-17); Calcium 9.2 mg/dl (8.4-10.2); Carbon Dioxide 32 mmol/L (22-30); Chloride 97 mmol/L (98-107); Glucose 82 mg/dl (70-99); Potassium 3.2 mmol/L (3.5-5.1); Sodium 135 mmol/L (135-145); eGFR > 60.00
[2024-02-29 14:11] LABS: Erythrocyte Sed Rate 57 mm/hour (0-20)
[2024-02-29 14:12] LABS: Phosphorus 3.4 mg/dl (2.5-4.5)
== END ==
LOC: OLABN 12:43
PROVIDERS: ATTENDING PHYSICIAN Student in an Organized Health Care Education/Training Program
DX: M81.0 Age-related osteoporosis without current pathological fracture (principal); E78.00 Pure hypercholesterolemia, unspecified; E05.90 Thyrotoxicosis, unspecified without thyrotoxic crisis or storm
CPT/HCPCS: 36415; 80069; 85025; 85652

== ENCOUNTER → 2024-03-07 11:02 | Outpatient (REF) | payer MEDICARE, OTHER, SELFPAY ==
[2024-03-07 14:44] LABS: % Basophils 0.9 % (0-2); % Eosinophils 4.4 % (0-6); % Immature Granulocytes 0.2 % (0-0.5); % Lymphocytes 14.8 % (20.5-51.1); % Monocytes 11.6 % (1.7-9.3); % Neutrophils 68.1 % (42.2-75.2); Absolute Basophils 0.1 10^3/uL (0-0.2); Absolute Eosinophils 0.3 10^3/uL (0-0.7); Absolute Monocytes 0.8 10^3/uL (0.1-0.6); Absolute Neutrophils 4.5 10^3/uL (1.4-6.5); Hematocrit 33.6 % (37.0-47.0); Mean Corp Hgb Conc. 32.7 g/dL (33.0-37.0); Mean Corpuscular Hgb 28.2 pg (27.0-31.0); Mean Corpuscular Volume 86.2 fL (81.0-99.0); Nucleated Red Blood Cells % 0 %; Platelet Count 252 10^3/uL (130-400); Red Cell Dist. Width 13.5 % (11.5-14.5); White Blood Cell Count 6.5 10^3/uL (4.8-10.8)
[2024-03-07 14:50] LABS: Albumin 3.6 g/dl (3.5-5.0); Blood Urea Nitrogen 24 mg/dl (7-17); Calcium 9.7 mg/dl (8.4-10.2); Carbon Dioxide 31 mmol/L (22-30); Chloride 96 mmol/L (98-107); Glucose 85 mg/dl (70-99); Phosphorus 3.8 mg/dl (2.5-4.5); Potassium 3.5 mmol/L (3.5-5.1); Sodium 133 mmol/L (135-145); eGFR > 60.00
[2024-03-07 15:02] LABS: Erythrocyte Sed Rate 16 mm/hour (0-20)
== END ==
LOC: OLABN 11:02
PROVIDERS: ATTENDING PHYSICIAN Student in an Organized Health Care Education/Training Program
DX: M81.0 Age-related osteoporosis without current pathological fracture (principal); E78.00 Pure hypercholesterolemia, unspecified; E05.90 Thyrotoxicosis, unspecified without thyrotoxic crisis or storm
CPT/HCPCS: 80069; 85025; 85652

== ENCOUNTER → 2024-04-06 09:40 | Outpatient (REF) | payer MEDICARE, OTHER, SELFPAY ==
[2024-04-06 10:33] LABS: C-Reactive Protein < 5.00 mg/L (0.0-10.00)
[2024-04-06 11:06] LABS: Erythrocyte Sed Rate 24 mm/hour (0-20)
== END ==
LOC: OLABN 09:40
PROVIDERS: ATTENDING PHYSICIAN Student in an Organized Health Care Education/Training Program
DX: E05.90 Thyrotoxicosis, unspecified without thyrotoxic crisis or storm (principal); E78.00 Pure hypercholesterolemia, unspecified
CPT/HCPCS: 36415; 85652; 86140

== ENCOUNTER → 2024-12-21 15:13 | Outpatient (REF) | payer MEDICARE, OTHER, SELFPAY ==
[2024-12-21 15:25] LABS: % Basophils 0.6 % (0-2); % Immature Granulocytes 0.3 % (0-0.5); % Lymphocytes 14.2 % (20.5-51.1); % Monocytes 9.8 % (1.7-9.3); % Neutrophils 71.1 % (42.2-75.2); Absolute Eosinophils 0.3 10^3/uL (0-0.7); Absolute Monocytes 0.7 10^3/uL (0.1-0.6); Absolute Neutrophils 4.8 10^3/uL (1.4-6.5); Hematocrit 37.6 % (37.0-47.0); Hemoglobin 12.7 g/dL (12.0-16.0); Mean Corp Hgb Conc. 33.8 g/dL (33.0-37.0); Mean Corpuscular Hgb 30.7 pg (27.0-31.0); Mean Corpuscular Volume 90.8 fL (81.0-99.0); Nucleated Red Blood Cells % 0 %; Platelet Count 203 10^3/uL (130-400); Red Blood Cell Count 4.14 10^6/uL (4.20-5.40); Red Cell Dist. Width 13.2 % (11.5-14.5); White Blood Cell Count 6.7 10^3/uL (4.8-10.8)
[2024-12-21 15:36] LABS: Blood Urea Nitrogen 19 mg/dl (7-17); Calcium 9.3 mg/dl (8.4-10.2); Carbon Dioxide 29 mmol/L (22-30); Chloride 104 mmol/L (98-107); Glucose 115 mg/dl (70-99); Magnesium 2.1 mg/dl (1.6-2.3); Potassium 3.7 mmol/L (3.5-5.1); Sodium 136 mmol/L (135-145); eGFR > 60.00
== END ==
LOC: OLABN 15:13
PROVIDERS: ATTENDING PHYSICIAN Student in an Organized Health Care Education/Training Program
DX: I10 Essential (primary) hypertension (principal); E46 Unspecified protein-calorie malnutrition; I48.91 Unspecified atrial fibrillation
CPT/HCPCS: 36415; 80048; 83735; 85025

== ENCOUNTER → 2024-12-23 03:00 | Outpatient (REF) | payer MEDICARE, OTHER, SELFPAY ==
[2024-12-23 12:23] LABS: Urine Albumin Negative (Neg - Trace); Urine Bilirubin Negative (Negative); Urine Character Clear (Clear); Urine Color Yellow; Urine Glucose Negative (Negative); Urine Ketone Negative (Negative); Urine Leukocyte 2+ (Negative); Urine Nitrite Negative (Negative); Urine Occult Blood Negative (Negative); Urine Urobilinogen Negative (Neg - 1+)
[2024-12-23 13:28] LABS: Urine Bacteria Many (Negative); Urine Red Blood Cell 0-2 /HPF (0-2)
[2024-12-23 13:29] LABS: Urine Urothelial Cell 0-2 /LPF (FEW)
== END ==
LOC: OLABN 03:00
PROVIDERS: ATTENDING PHYSICIAN Student in an Organized Health Care Education/Training Program
DX: R35.0 Frequency of micturition (principal)
CPT/HCPCS: 81003; 81015; 87086

== ENCOUNTER → 2025-02-14 10:21 | Outpatient (REF) | payer MEDICARE, OTHER, SELFPAY ==
[2025-02-14 14:36] LABS: TSH 0.71 uIU/ml (0.47-4.68)
== END ==
LOC: OLABN 10:21
PROVIDERS: ATTENDING PHYSICIAN Student in an Organized Health Care Education/Training Program
DX: E05.00 Thyrotoxicosis with diffuse goiter without thyrotoxic crisis or storm (principal); E05.90 Thyrotoxicosis, unspecified without thyrotoxic crisis or storm
CPT/HCPCS: 36415; 84443

== ENCOUNTER → 2025-03-30 10:10 | Outpatient (REF) | payer MEDICARE, OTHER, SELFPAY ==
[2025-03-30 10:44] LABS: ALT (SGPT) 24 U/L (0-35); AST (SGOT) 31 U/L (14-36); Albumin 3.6 g/dl (3.5-5.0); Alkaline Phosphatase 60 U/L (38-126); Blood Urea Nitrogen 21 mg/dl (7-17); Calcium 9.6 mg/dl (8.4-10.2); Carbon Dioxide 32 mmol/L (22-30); Chloride 100 mmol/L (98-107); Glucose 84 mg/dl (70-99); HDL Cholesterol 45 mg/dl; LDL Cholesterol, Calculated 113 mg/dl; Potassium 3.5 mmol/L (3.5-5.1); Sodium 135 mmol/L (135-145); Total Protein 6.0 g/dl (6.3-8.2); Very Low Density Lipoprotein 19 mg/dl (0-30); eGFR > 60.00
== END ==
LOC: OLABN 10:10
PROVIDERS: ATTENDING PHYSICIAN Student in an Organized Health Care Education/Training Program
DX: I10 Essential (primary) hypertension (principal); Z13.220 Encounter for screening for lipoid disorders; R79.89 Other specified abnormal findings of blood chemistry
CPT/HCPCS: 36415; 80053; 80061